=== PATIENT | female | born 1945 | race Caucasian/White ===

== ENCOUNTER 2024-11-25 12:00 | Inpatient (IN) | payer MEDICARE, SELFPAY ==
[2024-11-24 22:08] VITALS: BP 204/103
[2024-11-24 22:15] LABS: Glucose - Point of Care 129 mg/dl (70-99)
[2024-11-24 22:26] VITALS: BP 196/95
--- NOTE | 2024-11-24 22:28 | ED.CVA ---
History of Present Illness
General
Chief Complaint: CVA/TIA Symptoms
Source: patient and family
Time Seen by Provider: 11/24/24 22:15
Onset of Stroke Symptoms
Onset of symptoms known: Yes
Date of onset of symptoms: 11/24/24
Time of onset of symptoms: 21:00
History of Present Illness
History of Present Illness:
79-year-old female presents to the emergency room complaining of of dizziness, vomiting slurred speech. Symptoms seem to begin about an hour or so prior to arrival. Patient denies any headache. Patient has had episodes of vertigo in the past but
has not had slurred speech previously. Today's episode is similar to previous except for the slurred speech. Patient was apprehensive to get up from the wheelchair to move around at home because of the vertigo. She feels off balance when she
stands.
Past History
Past History
ED Past Medical History: CAD, DE and Psychiatric (Anxiety, Depression)
ED Past Surgical History: Cardiac (Stents) and Orthopedic (Spinal surgery)
Social History
Tobacco: Non-smoker
Alcohol: Occasional
Personal:
Living: alone
Phy Exam
Physical Exam
Physical Exam:
General: Awake, Alert, Oriented X3. No acute distress.
Vitals: unremarkable
Head: Atraumatic
Eyes: Pupils equal, EOMI
Throat: Airway intact, no exudates
Neck: Trachea midline
Lungs: Clear and equal b/l
Heart: Regular rate, no murmurs
Abd: Soft, Nontender, No pulsatile mass
Neuro: Cranial nerves intact, muscle strength equal bilaterally, cerebellar exam normal
Skin: Warm, dry, no rash
Extremities: pulses equal b/l, no edema
Scores
NIH Stroke Score
Level of Consciousness: 0 - Alert
LOC Questions: 0-Answers both correctly
LOC Commands: 0-Performs both correctly
Best Horizontal Gaze: 0-Normal
Visual Raymundo: 0=Normal, no visual loss
Facial Palsy: 0=Normal, symmetrical
Motor - Right Arm: 0=No drift 10 seconds
Motor - Left Arm: 0=No drift 10 seconds
Motor - Right Le-No drift 5 seconds
Motor - Left Le-No drift 5 seconds
Limb Ataxia: 0-Absent
Sensation: 0-Normal
Best Language: 0-No aphasia
Dysarthria: 1-Mild slurring
Extinction and Inattention: 0-No abnormality
NIH Total Score:: 1
Course
Orders/Labs/Results
Orders:
Orders
11/24/24 22:19
Electrocardiogram (*1) Urgent
Reason for Study: Other
Other Reason for Exam: Possible Stroke
CT HEAD STROKE ALERT W/o Cont Urgent
Comment:
Reason For Exam: CVA/TIA sx
Bedside Glucose- Treatment ONCE
Cardiac Monitoring- Treatment ONCE
IV Insert/Care/Rem.- Treatment PRN
Urinalysis Reflex To Culture Urgent
Date Specimen was Collected: 11/24/24
Time Specimen was Collected: 22:20
Vital Signs As Directed
Frequency: Other
Weight As Directed
Frequency: Once
Comment: ZERO STRETCHER SCALE FOR ACCURATE WEIGHT
O2 Therapy [RESP] Urgent
Titrate/Wean O2 to maintain O2 sat greater than (%): 93
Special Instructions: MAINTAIN CONTINUOUS O2 SATS > OR = 93%
11/24/24 22:20
EKG- Treatment ONCE
11/24/24 22:23
Basic Metabolic Panel Urgent
Complete Blood Count/With Diff Urgent
PTT Urgent
Prothrombin Time Urgent
Troponin I Urgent
11/24/24 22:26
CT HEAD/NECK ANG STROKE ALERT Urgent
Comment:
Reason For Exam: dizziness, slurred speech
11/24/24 22:50
Ondansetron Injectable [Zofran] 4 mg IV NOW STA
11/24/24 23:10
Meclizine [Antivert] 25 mg PO NOW STA
11/24/24 23:11
Aspirin Chewable [Low Strength Aspirin] 324 mg PO NOW STA
Clopidogrel Bisulfate [Plavix] 75 mg PO NOW STA
11/25/24 00:32
Ondansetron Injectable [Zofran] 4 mg .ROUTE .STK-MED ONE
11/25/24 00:33
Ondansetron Injectable [Zofran] 4 mg IV NOW STA
11/25/24 00:37
Urine Microscopic Reflex Cult Urgent
11/25/24 01:08
Potassium Urgent
11/25/24 01:26
Admit/Transfer Patient As Directed
Co-Sign Provider:
Level of Care: Observation services
Assign to:: Telemetry
Physician / Group: Kulwinder
Diagnosis: Vertigo, CVA / TIA
Reason for Telemetry: CVA/TIA
Date to Stop Telemetry: 11/28/24
Time to Stop Telemetry: 11:00
PRN Pain Medication Management As Directed
May give lesser potent ordered pain med per pt: Yes
preference::
Protocol:: Medication orders for pain may be administered in a
manner that supports deferring to patient preference
when the pt is:
- Requesting an ordered lesser potent pain medication.
Least to most potent pain medications are defined
as: acetaminophen < NSAID < tramadol < opioids
(morphine, oxycodone, hydromorphone).
- Requesting a lesser dose of the same medication IF
ORDERED.
- Requesting a less intrusive route of administration
if both routes are prescribed by the provider (PO <
IV).
11/25/24 01:27
Code Status As Directed
Resuscitation Status: Full Code
11/25/24 02:03
Acetaminophen [Tylenol] 650 mg PO Q4HPRN PRN
Meclizine [Antivert] 12.5 mg PO Q8HPRN PRN
11/25/24 02:03
Glycohemoglobin (HgbA1c) Routine
TSH Reflex To Free T4 Routine
Activity As Directed
Activity Level: Ambulate
With Assistance
EKG with chest pain [ECG as needed] As Directed
ECG as needed for:: Chest Pain
I/O [Intake/ Output] As Directed
Frequency: Per unit guidelines
Neurological Checks As Directed
Frequency: q4h
Orthostatic Vital Signs As Directed
Orthostatic VS Frequency: BID
Pneumatic Compression Sleeves As Directed
Type: Knee high
Vital Signs As Directed
Frequency: Per unit guidelines
Oxygen Therapy [O2 Therapy] [RESP] Routine
Titrate/Wean O2 to maintain O2 sat greater than (%): 94
Ot Eval And Treat Routine
PT Consult [Pt Eval And Treat] Routine
Activity Level: Ambulate
With Assistance
Speech Therapy Eval & Treat Routine
DX Deep Vein Thrombosis Video Routine
11/25/24 06:00
EKG [Electrocardiogram (*1)] IN AM
Reason for Study: Chest Pain
Regular
Basic Metabolic Panel IN AM
Cardiovascular Evaluation IN AM
Complete Blood Count/No Diff IN AM
MR Brain Without Contrast IN AM
Comment:
Reason For Exam: CVA / TIA
Recent pill cam endoscopy?: No
11/25/24 08:00
Aspirin Chewable [Low Strength Aspirin] 81 mg PO DAILY
Clopidogrel Bisulfate [Plavix] 75 mg PO DAILY
11/28/24 11:00
DC Protocol for Telemetry ONCE
Abnormal Lab Results
11/24/24 11/24/24 11/24/24
22:13 22:23 22:53
Absolute Monos (auto) 0.7 H 10^3/uL
(0.1-0.6)
Chloride 111 H mmol/L
(98-107)
BUN 22 H mg/dl
(7-17)
Glucose 136 H mg/dl
(70-99)
Urine Ketones
Urine Albumin (Reflex)
POC Glucose 129 H mg/dl 130 H mg/dl
(70-99) (70-99)
11/25/24
00:37
Absolute Monos (auto)
Chloride
BUN
Glucose
Urine Ketones 1+ A
(Negative)
Urine Albumin (Reflex) 1+ A
(Neg - Trace)
POC Glucose
11/24/24 22:23
11/25/24 01:08
Vital Signs
Initial and Last Documented VS:
Initial Vital Signs
Temp Pulse Resp BP Pulse Ox
97.5 F 81 18 204/103 96
11/24/24 22:08 11/24/24 22:08 11/24/24 22:08 11/24/24 22:08 11/24/24 22:08
Last Documented Vital Signs
Temp Pulse Resp BP Pulse Ox
97.5 F 71 17 140/54 96
11/24/24 22:08 11/25/24 02:00 11/25/24 02:00 11/25/24 02:00 11/25/24 02:00
MDM/Problems Addressed
Differential Diagnosis Includes:
Intracranial bleed, central vertigo from CVA, peripheral vertigo
MDM/Problems Addressed:
Patient presents with vertigo, nausea and. No focal weakness. No slurred speech. Patient has had a couple episodes of vertigo in the past. Hints exam performed and see no nystagmus whatsoever. I do not appreciate any vertical skew. Head
impulse test shows no saccada. Overall only one of the 3 portions of the exam is suggestive of a central event. Discussed patient's presentation with [place] stroke fellow, Dr. Schmitt. Given the patient has no focal deficits other than perhaps
slurred speech and the fact the patient able to ambulate with minimal assistance she does not believe the risks of TNK outweigh the potential benefit. However we will administer aspirin and Plavix. Will hospitalize for MRI and further neurologic
evaluation.
*Pulse Oximetry
SaO2: 96
Oxygen Mode of Delivery: Room air
Patient hypoxic: no
*Critical Care Note
Total Time (30-74mins, 75-104mins- exclusive of procedures): 44 min
comment:
Critical care statement: A total of 44 minutes of critical care time was provided for this patient. This includes management of unstable vital signs, evaluation of the patient at bedside, reviewing the patient's pertinent medical records, discussion
with consultants, review of old EKGs and review of pertinent medical records. This time with separate from time utilized to perform the aforementioned documented procedures
Patient Management
Social determinants of health affecting care: Strong social support
ED Attending Note
-
Portions of this chart may have been created with voice recognition software.� Occasional wrong word or��sound alike� substitutions may have occurred due to the inherent limitations of voice recognition software.
Discharge Plan
Departure
Patient Disposition: Admit
Date of Disposition: 11/25/24
Time of Disposition: 00:39
Presentation/result/management discussed w/ accepting MD/DO: Hospitalist
Patient with high blood pressure during this ER visit?: Yes
Condition: Good
Discharge Problem:
Vertigo, Slurred speech
Interventions
Interventions:
*Risk Screen - Suicide Last Done: 11/24/24 22:14
*General Assessment Last Done: 11/24/24 22:14
*Neglect/Abuse Screening Last Done: 11/24/24 22:14
*ED COVID-19 Vaccine History Last Done: 11/24/24 22:14
ED- Pulmonary Assessment Last Done: 11/24/24 23:39
ED- Neurological Assessment Last Done: 11/24/24 23:39
ED- Cardiac Assessment Last Done: 11/24/24 23:39
ED Swallowing Screen Last Done: 11/24/24 23:20
[2024-11-24 22:36] LABS: Hematocrit 41.1 % (37.0-47.0); Hemoglobin 14.3 g/dL (12.0-16.0); Mean Corp Hgb Conc. 34.8 g/dL (33.0-37.0); Mean Corpuscular Volume 88.2 fL (81.0-99.0); Nucleated Red Blood Cells % 0 %; Platelet Count 164 10^3/uL (130-400); Red Cell Dist. Width 12.1 % (11.5-14.5)
[2024-11-24 22:45] LABS: INR 0.91; PT 12.5 Sec (11.4-14.6)
[2024-11-24 22:46] LABS: APTT 23.6 Sec (23.4-35.0)
[2024-11-24 22:49] VITALS: BMI 32.3
[2024-11-24 22:56] LABS: Glucose - Point of Care 130 mg/dl (70-99)
[2024-11-24 23:00] VITALS: BP 185/90
[2024-11-24 23:01] LABS: Blood Urea Nitrogen 22 mg/dl (7-17); Calcium 9.8 mg/dl (8.4-10.2); Carbon Dioxide 23 mmol/L (22-30); Chloride 111 mmol/L (98-107); Estimated Creatinine Clearance 59 ml/min; Glucose 136 mg/dl (70-99); Sodium 141 mmol/L (135-145); eGFR > 60.00
[2024-11-24] MEDS: ZOFRAN 4 MG IV (23:06)
[2024-11-24 23:10] LABS: Troponin I < 0.012 ng/ml
[2024-11-24 23:11] VITALS: BP 180/158
[2024-11-24] MEDS: ANTIVERT 25 MG PO (23:26)
[2024-11-24] MEDS: LOW STRENGTH ASPIRIN 324 MG PO (23:26)
[2024-11-24] MEDS: PLAVIX 75 MG PO (23:26)
[2024-11-25] VITALS (17 sets, daily range): BP systolic 118–181; BP diastolic 50–125; PULSE 72–88; O2SAT 98
[2024-11-25] MEDS: ZOFRAN 4 MG IV (00:33)
[2024-11-25 01:11] LABS: Urine Character Clear (Clear)
--- NOTE | 2024-11-25 01:33 | HPS.HSE ---
Family Physician
-
Family Physician: NO INTERVIEW UNKNOWN
Chief Complaint
-
Dizziness
History of Present Illness
Patient is a 79y F with PMH significant for ASCVD who presents to ED complaining of dizziness. Patient states that she developed dizziness early this AM sometime after waking. She describes feeling unsteady on her feet and feeling as if she was
spinning in circles. No vision changes and did not feel as if room was spinning around her. Patient denies any fall or LOC. She states that family had to assist her with walking so she would not fall. No prior h/o similar symptoms. No recent
fever, sore throat, cough, etc. Patient denies any associated headache, numbness / tingling, etc.
Family reported some slurred speech as well - though patient states she did not appreciate this herself.
No prior h/o CVA. Patient had prior CA. She denies any stents - though prior records clearly state she had ESTEFANY to the RCA in 2011. She does not take ASA or any other CV medications.
At the time of my examination, patient states that her symptoms are significantly improved. She was able to ambulate to the bathroom in the ED without dizziness / ataxia.
Medical History
Past Medical History
Past Medical History: Reports Other
Additional Past Medical History:
ASCVD
GERD
Anxiety / Depression
OAB
Past Surgical History: Reports Other
Additional Past Surgical History:
PTCA with ESTEFANY to RCA (2011)
Right TKA
Social History
Tobacco: Non-smoker
Alcohol: Occasional
Drug: None
Family History
Family History: Not pertinent
Allergies / Home Medications
Allergies reflects when Allergies were last updated in [facility].
Home Medications with original date entered in [facility]
Allergy/Medication List:
Allergies
Allergy/AdvReac Type Severity Reaction Status Date / Time
levofloxacin (From Levaquin) Allergy Anaphylaxis Verified 11/24/24 22:15
morphine Allergy Vomiting Verified 11/24/24 22:15
Home Medications
tolterodine 4 mg capsule,extended release 24 hr 4 mg PO DAILY Urinary issue 04/06/22
Review of Systems
-
History Source: Patient
A 12 point ROS was completed and negative except as noted: Yes
Constitutional: Reports Fatigue; Denies Fever or Chills
Respiratory: Denies Cough or Trouble Breathing
Cardiac: Denies Chest Pain or Palpitations
Abdomen/GI: Denies Abdominal Pain, Nausea, Vomiting or Diarrhea
: Denies Dysuria, Frequency or Flank Pain
Musculoskeletal: Denies Joint Pain or Edema
Neurological: Reports Dizzy; Denies Headache, Weakness or Numbness
Physical Exam
Vital Signs
Vital Signs
Temp Pulse Resp BP Pulse Ox
97.5 F 82 15 180/158 94
11/24/24 22:08 11/24/24 23:30 11/24/24 23:30 11/24/24 23:11 11/24/24 23:39
Physical Exam
General: Other (79y F in no acute distress.)
HEENT: Moist mucous membranes, PERRLA and Other (Mild dysconjugate gaze. No nystagmus noted.)
Respiratory: Clear; No Wheezes, Rales or Rhonchi
Cardiac: S1/S2 and Regular Rhythm; No Murmur
GI: Soft, Non Tender, Non Distended and Normal Bowel Sounds
Musculoskeletal: No Clubbing, No Cyanosis and No Edema
Neuro: AO x 3 and Nonfocal/grossly intact
Laboratory Results
-
11/24/24 22:23
Laboratory Results
PT 12.5 Sec (11.4-14.6) 11/24/24 22:23
INR 0.91 11/24/24 22:23
APTT 23.6 Sec (23.4-35.0) 11/24/24 22:23
Total Bilirubin Cancelled 11/24/24 22:23
AST Cancelled 11/24/24 22:23
ALT Cancelled 11/24/24 22:23
Alkaline Phosphatase Cancelled 11/24/24 22:23
Troponin I < 0.012 ng/ml 11/24/24 22:23
Impression/Plan
-
A/P: Patient is a 79y F with PMH significant for ASCVD who presents to ED complaining of dizziness.
Dizziness
Dysarthria
- Observe overnight for further evaluation and treatment.
- Suspect BPPV / peripheral vertigo - but rule out central etiology / stroke given slurred speech appreciated by family.
- CT / CTA in the ED were unremarkable.
- DAPT for now.
- MRI in AM.
- Neuro eval if any significant abnormality.
- PT / Vestibular evaluation.
- Monitor for any new / worsening / recurrent symptoms.
ASCVD
- Patient with records clearly indicating prior RCA ESTEFANY.
- She does not take ASA daily despite prior recommendations.
- ASA + Plavix for now.
- Should take ASA daily indefinitely.
- Check lipid panel, A1C, etc.
Elevated BP
- BP initially elevated in the ED - gradually improving without intervention.
- Hydralazine for very high BP.
- Monitor for changes - may benefit from initiation of antihypertensive medication prior to discharge.
OAB
- Hold Detrol acutely.
DVT Prophylaxis: SCDs
Code Status: Full
[2024-11-25 01:40] LABS: Potassium 3.5 mmol/L (3.5-5.1)
[2024-11-25 03:08] LABS: Urine Red Blood Cell None Seen /HPF (0-2)
[2024-11-25 05:56] LABS: Blood Urea Nitrogen 17 mg/dl (7-17); Calcium 9.3 mg/dl (8.4-10.2); Carbon Dioxide 28 mmol/L (22-30); Chloride 109 mmol/L (98-107); Estimated Creatinine Clearance 59 ml/min; Glucose 118 mg/dl (70-99); HDL Cholesterol 58 mg/dl; LDL Cholesterol, Calculated 193 mg/dl; Potassium 3.9 mmol/L (3.5-5.1); Sodium 141 mmol/L (135-145); Very Low Density Lipoprotein 42 mg/dl (0-30); eGFR > 60.00
--- NOTE | 2024-11-25 08:05 | W.PN.HOSP.TC ---
Addendum entered and electronically signed by Mer Good MD 11/25/24 12:15:
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
Informed daughter on the phone
[place] Neuro Dr Joseph
Cont DAPT ASA/plavix
PT recc JOSEPH Ty informed for Ty dispo
Also incidental finding of Moderate spinal cord compression and central canal stenosis at C5/C6 from MRI. Pt did not complain of neck pain.
Finding discussed with daughter Josie. Recc outpt neurosurgery eval
total time spent 51 min
Original Note:
Today's Communication/Plan
-
see A/P
Assessment / Plan
Assessment / Plan
HPI: 79y F with PMH significant for ASCVD who presented to ED complaining of dizziness and unsteady on her feet. Patient denies any fall or LOC. She states that family had to assist her with walking so she would not fall. No prior h/o similar
symptoms. Family reported some slurred speech as well - though patient states she did not appreciate this herself.
No prior h/o CVA. Patient had prior AK. She denies any stents - though prior records clearly state she had ESTEFANY to the RCA in 2011. She does not take ASA or any other CV medications.
In the ED, patient states that her symptoms are significantly improved. She was able to ambulate to the bathroom in the ED without dizziness / ataxia.
A/P:
# Dizziness
# resolved dysarthria
Possible BPPV / peripheral vertigo - but rule out central etiology / stroke given slurred speech appreciated by family.
CT / CTA in the ED were unremarkable.
Check MRI
DAPT for now.
LDL 193, pt states that she did not tolerate statin before, start Zetia 10 mg
Follow A1C
Neuro CS
PT / Vestibular evaluation.
Monitor for any new / worsening / recurrent symptoms.
Noted UA is largely unrevealing
Clears for now until nausea resolved
# ASCVD
Patient with records clearly indicating prior RCA ESTEFANY.
She does not take ASA daily despite prior recommendations.
ASA + Plavix for now.
Should take ASA daily indefinitely.
# Essential HTN
Allow permissive HTN for now
consider adding standing BP med after window for stroke
IV Hydralazine for very high BP.
# OAB
Hold Detrol acutely.
DVT Prophylaxis: SCDs
Code Status: Full
Anticipated Discharge: 24 - 48 hours
Subjective/Interval History
-
Date of Service: November 25, 2024
Objective Data
-
Labs:
Laboratory Results
11/24/24 11/25/24 11/25/24
22:23 01:08 05:23
WBC 10.2 Cancelled
Hgb 14.3 Cancelled
Hct 41.1 Cancelled
Plt Count 164 Cancelled
PT 12.5
INR 0.91
APTT 23.6
Sodium 141 141
Potassium 3.5 3.9
Chloride 111 H 109 H
Carbon Dioxide 23 28
BUN 22 H 17
Creatinine 0.7 0.7
Glucose 136 H 118 H
Calcium 9.8 9.3
Total Bilirubin Cancelled
AST Cancelled
ALT Cancelled
Alkaline Phosphatase Cancelled
Vital Signs:
Vital Signs
Temp Pulse Resp BP Pulse Ox
36.4 C 69 24 174/78 98
11/24/24 22:08 11/25/24 06:30 11/25/24 06:30 11/25/24 06:00 11/25/24 06:30
Review of Systems
-
History Source: Patient
Abdomen/GI: Reports Nausea
Neuro: Reports Dizzy
Physical Exam
-
General: Well Developed, Well Nourished, No Apparent Distress, Comfortable and Conversant; Negative Respiratory Distress
HEENT: Normocephalic, Atraumatic, Nose Appears Normal and Ears Appear Normal; Negative Oxygen
Respiratory: Clear to Auscultation and Non Labored Respirations; Negative Accessory Resp Muscle Use
Cardiac: Regular Rhythm and S1/S2
GI: Soft, Nontender, Nondistended and Normal Bowel Sounds
Skin: Warm and Dry
Neuro: Awake, Alert, Oriented and AO x 3
Psych: Calm and Intact Judgement/Insight
Data Reviewed
-
CT Scan: Report Reviewed by me
Labs: Labs Reviewed by me
--- NOTE | 2024-11-25 09:59 | CON.NEURO ---
Addendum entered and electronically signed by Mario Joseph MD 11/25/24 16:33:
Studies reviewed.
I have personally examined the patient. I reviewed and agree with the MAINTENANCE AND ENGINEERING MANAGER's Note.
My addenda:
Awake, alert, interactive. No acute distress.
Speech intact.
Follows 2-step requests w/o difficulty. No tremor.
Extra-ocular movements grossly intact.
Facial movements full and symmetric. Hearing intact to normal conversational volume.
Normal UE movements bilaterally.
Neck: full ROM.
Chest: no dyspnea
Heart: no JVD
Ext: (-) Clubbing, (-) Cyanosis, (-) Edema
IMPRESSIONS/RECOMMENDATIONS:
Abrupt onset of dizziness and suggestion of slurred speech
MRI of brain suggestive of large midline and left cerebellar acute ischemic stroke
start ASA and Clopidogrel for 21 days then aspirin alone
provide Atorvastatin 80 mg daily due to LDL > 70
Unclear if patient likely to have worsening in next 24 hours due to possible edema
rehab evaluations
eventual re-imaging of spinal cord due to moderate spinal cord narrowing
D/W patient
All questions answered.
Will continue to follow as needed. Patient should follow with usual outpatient neurologist.
Original Note:
Documented by User: Debi Maldonado NP 11/25/24 13:31
Neuro Assessment/Plan
Assessment
Patient is a 79 year old right-handed female with PMH significant for CAD, [place] who presented to [facility] on 11/25/2024 for evaluation of dizziness.
Head CT: No acute intracranial abnormality. ASPECT score: 10
CTA head/neck: No findings to suggest hemodynamically significant stenosis of the carotid arterial system bilaterally or internal carotid artery dissection bilaterally. Dominant left vertebral artery. No findings to suggest proximal intracranial
arterial stenosis bilaterally.
Brain MRI:
1. ACUTE ISCHEMIC INFARCTS in the CEREBELLAR VERMIS and LEFT CEREBELLAR HEMISPHERE.
2. Moderate white matter leukoaraiosis in the frontal and parietal lobes.
3. Mild diffuse cerebral and cerebellar volume loss.
4. Large amount of fluid in the right mastoid air cells.
5. Severe multilevel cervical discogenic degenerative disease.
6. Moderate spinal cord compression and central canal stenosis at C5/C6.
7. Mild spinal cord compression and central canal stenosis at C3/C4 and C4/C5.
Labs: Cholesterol 293, LDL 193, Hgb A1C 5.3
Plan
Impression: abrupt onset of dizziness due to acute ischemic cerebellar stroke as evidence by brain MRI
-BP goal is normotension.
-continue aspirin 81 mg and clopidogrel 75 mg daily for 21 days followed by monotherapy with aspirin
-goal LDL <70, current LDL 193, add atorvastatin 80 mg nightly.
-PT/OT/ST evaluations
-continue neurochecks and NIHSS per unit guidelines
-stroke education material to be provided
-follow up with usual outpatient neurologist Dr. Liliana Ram at [facility]
All questions encouraged and answered, plan of care discussed with Dr. Joseph, nurse and patient
Consultation
Order
Date of Consultation: 11/25/24
Requesting Provider: hospitalist
Reason for Consult: dizziness
Subjective/Objective
Subjective Data
Date of Service: November 25, 2024
Patient is vague and not a great historian. Most information taken from staff and chart. Patient is a 79 year old right-handed female with PMH significant for CAD, [place] who presented to [facility] on 11/25/2024 for evaluation of dizziness. Patient states
that she developed dizziness and blurry vision a few days ago. She states her head 'feels funny.' Patient denies any fall or LOC. She states that family had to assist her with walking so she would not fall. Denies recent fever, SOB, chest pain or
illness. Patient denies any associated headache, numbness or tingling. Denies chewing or swallowing issues. Denies issues with bowel/bladder. No prior h/o CVA. Patient had prior [place]. She denies any stents - though prior records clearly state she
had ESTEFANY to the RCA in 2011. She is not on any antiplatelet mediations or anticoagulation. In the ED she was hypertensive with initial BP 204/103. Initial head CT and CTA head and neck unremarkable. Brain MRI showed acute ischemic infarcts in the
cerebellar vermis and left cerebellar hemisphere. Current NIHSS 0, patient not a TNK candidate due to low NIH and out of window.
Objective Data
Vital Signs
Temp Pulse Resp BP Pulse Ox
97.8 F 69 24 174/78 98
11/25/24 08:27 11/25/24 06:30 11/25/24 06:30 11/25/24 06:00 11/25/24 06:30
Lab Results
11/25/24 05:23
11/25/24 05:23
PT 12.5 Sec (11.4-14.6) 11/24/24 22:23
INR 0.91 11/24/24 22:23
APTT 23.6 Sec (23.4-35.0) 11/24/24 22:23
Sodium 141 mmol/L (135-145) 11/25/24 05:23
Potassium 3.9 mmol/L (3.5-5.1) 11/25/24 05:23
BUN 17 mg/dl (7-17) 11/25/24 05:23
Glucose 118 mg/dl (70-99) H 11/25/24 05:23
Calcium 9.3 mg/dl (8.4-10.2) 11/25/24 05:23
LDL Cholesterol, Calc 193 mg/dl 11/25/24 05:23
Patient Allergies
levofloxacin (From Levaquin) Allergy (Verified 11/24/24 22:15)
Anaphylaxis
morphine Allergy (Verified 11/24/24 22:15)
Vomiting
CVA Assessment
Onset of Stroke Symptoms
Onset of symptoms known: No
Time pt last seen normal is known: No
NIH Stroke Score
Level of Consciousness: 0 - Alert
LOC Questions: 0-Answers both correctly
LOC Commands: 0-Performs both correctly
Best Horizontal Gaze: 0-Normal
Visual Raymundo: 0=Normal, no visual loss
Facial Palsy: 0=Normal, symmetrical
Motor - Right Arm: 0=No drift 10 seconds
Motor - Left Arm: 0=No drift 10 seconds
Motor - Right Le-No drift 5 seconds
Motor - Left Le-No drift 5 seconds
Limb Ataxia: 0-Absent
Sensation: 0-Normal
Best Language: 0-No aphasia
Dysarthria: 0-Normal
Extinction and Inattention: 0-No abnormality
NIH Total Score:: 0
Tenecteplase Contraindications
Inclusion and Exclusion criteria reviewed: Yes
Reasons for NON-Tx with Thrombolytics ABSOLUTE Exclusions: Time-out of window
IAT Contraindications: >6 hrs from onset/last seen normal and NIHSS < 6
Medications
-
Active Medications
Generic Name Dose Route Start Last Admin
Trade Name Freq PRN Reason Stop Dose Admin
Acetaminophen 650 mg 11/25/24 02:03
Acetaminophen 325 Mg Tablet PO 12/23/24 02:02
Q4HPRN PRN
Mild Pain / Temp > 101
Aspirin 81 mg 11/25/24 08:00
Aspirin 81 Mg Chewable Tablet PO 12/23/24 07:59
DAILY ANJELICA
Clopidogrel Bisulfate 75 mg 11/25/24 08:00
Clopidogrel 75 Mg Tablet PO 12/23/24 07:59
DAILY ANJELICA
Ezetimibe 10 mg 11/25/24 09:00
Ezetimibe (Zetia) 10 Mg Tablet PO 12/23/24 08:59
DAILY ANJELICA
Hydralazine HCl 5 mg 11/25/24 02:03
Hydralazine 20 Mg/Ml Vial IV 12/23/24 02:02
Q6HPRN PRN
SBP > 180
Meclizine HCl 12.5 mg 11/25/24 02:03
Meclizine 12.5 Mg Tablet PO 12/23/24 02:02
Q8HPRN PRN
Dizziness
Home Medications
�Medication �Instructions �Recorded
tolterodine 4 mg capsule,extended 4 mg PO DAILY Urinary issue 04/06/22
release 24 hr

Documented by User: Mairo Joseph MD 11/25/24 16:30
CVA Assessment
NIH Stroke Score
NIH Total Score:: 0
[2024-11-25] MEDS: LOW STRENGTH ASPIRIN 81 MG PO (10:24)
[2024-11-25] MEDS: PLAVIX 75 MG PO (10:24)
[2024-11-25] MEDS: ZETIA 10 MG PO (10:24)
[2024-11-25 10:37] LABS: Glycohemoglobin (HgbA1c) 5.3 % (4.0-5.6)
--- NOTE | 2024-11-25 13:00 | CM ---
CM reviewed chart and met with pt in ED. Pt lives with her daughter Josie in 2 story home, [address]. has first floor half BA, full flight to second floor BR/full BA.
Pt is independent in ADLs, personal care and ambulation, uses rolling walker when outside the home.
Pt believes she does not have prescription coverage.
SCHILLING reviewed and signed. Copy left with pt.
PCP: Kristopher Guzmán
Pharmacy: [facility]
Anticipate return home, watch for needs.
--- NOTE | 2024-11-25 13:20 | PTOTSP ---
Speech Language Pathology
Pt seen for speech/language evaluations. No dysarthria/dysphonia with adequate diadochokinetic (DDK) rates. Pt/family reported speech at baseline. Language evaluated via the Quick Aphasia Battery (QAB), form 1. Pt with an overall score of 9.29,
indicative of overall skills WNL. Scored WNL on all subtests except 'word comprehension.' Scored 8.75, indicative of mild deficits; however, suspect related to TANACROSS status.
TILE FITTER to follow for therapeutic reassessment of cognitive abilities.
[2024-11-26] VITALS (8 sets, daily range): BP systolic 110–152; BP diastolic 56–75; PULSE 72–89; O2SAT 93
[2024-11-26 08:19] LABS: Hematocrit 37.9 % (37.0-47.0); Hemoglobin 13.0 g/dL (12.0-16.0); Mean Corp Hgb Conc. 34.3 g/dL (33.0-37.0); Mean Corpuscular Volume 87.7 fL (81.0-99.0); Platelet Count 167 10^3/uL (130-400); Red Cell Dist. Width 12.4 % (11.5-14.5)
--- NOTE | 2024-11-26 08:48 | W.PN.NEURO.1 ---
Today's Communication / Plan
-
goal LDL <70, current LDL 193, patient refusing atorvastatin
Neuro Assessment/Plan
Assessment
Patient is a 79 year old right-handed female with PMH significant for CAD, [place] who presented to [facility] on 11/25/2024 for evaluation of dizziness.
Head CT: No acute intracranial abnormality. ASPECT score: 10
CTA head/neck: No findings to suggest hemodynamically significant stenosis of the carotid arterial system bilaterally or internal carotid artery dissection bilaterally. Dominant left vertebral artery. No findings to suggest proximal intracranial
arterial stenosis bilaterally.
Brain MRI:
1. ACUTE ISCHEMIC INFARCTS in the CEREBELLAR VERMIS and LEFT CEREBELLAR HEMISPHERE.
2. Moderate white matter leukoaraiosis in the frontal and parietal lobes.
3. Mild diffuse cerebral and cerebellar volume loss.
4. Large amount of fluid in the right mastoid air cells.
5. Severe multilevel cervical discogenic degenerative disease.
6. Moderate spinal cord compression and central canal stenosis at C5/C6.
7. Mild spinal cord compression and central canal stenosis at C3/C4 and C4/C5.
Labs: Cholesterol 293, LDL 193, Hgb A1C 5.3
Impression: abrupt onset of dizziness due to acute ischemic cerebellar stroke as evidence by brain MRI
Plan
continue aspirin 81 mg and clopidogrel 75 mg daily for 21 days followed by monotherapy with aspirin
goal LDL <70, current LDL 193, patient refusing atorvastatin
follow up with usual outpatient neurologist Dr. iLliana Ram at [facility]
Subjective/Objective
Subjective Data
Date of Service: November 26, 2024
Objective Data
Vital Signs
Temp Pulse Resp BP Pulse Ox
36.3 C 62 16 130/62 95
11/26/24 03:36 11/26/24 03:36 11/26/24 03:36 11/26/24 03:36 11/26/24 03:36
Lab Results
11/26/24 07:23
PT 12.5 Sec (11.4-14.6) 11/24/24 22:23
INR 0.91 11/24/24 22:23
APTT 23.6 Sec (23.4-35.0) 11/24/24 22:23
Sodium 141 mmol/L (135-145) 11/25/24 05:23
Potassium 3.9 mmol/L (3.5-5.1) 11/25/24 05:23
BUN 17 mg/dl (7-17) 11/25/24 05:23
Glucose 118 mg/dl (70-99) H 11/25/24 05:23
Calcium 9.3 mg/dl (8.4-10.2) 11/25/24 05:23
LDL Cholesterol, Calc 193 mg/dl 11/25/24 05:23
Patient Allergies
levofloxacin (From Levaquin) Allergy (Verified 11/24/24 22:15)
Anaphylaxis
morphine Allergy (Verified 11/24/24 22:15)
Vomiting
Data Reviewed
-
Labs: Report Reviewed
Lipid Profile: Report Reviewed
Reviewed with: Nurse Practioner
Old Records: Summarized
Past History
Past History
ED Past Medical History: CAD, [place] and Psychiatric (Anxiety, Depression)
ED Past Surgical History: Cardiac (Stents) and Orthopedic (Spinal surgery)
Social History
Tobacco: Non-smoker
Alcohol: Occasional
Personal:
Living: alone
Medications
-
Medications:
Generic Name Dose Route Start Last Admin
Trade Name Freq PRN Reason Stop Dose Admin
Acetaminophen 650 mg 11/25/24 02:03
Acetaminophen 325 Mg Tablet PO 12/23/24 02:02
Q4HPRN PRN
Mild Pain / Temp > 101
Amlodipine Besylate 2.5 mg 11/26/24 08:00 11/26/24 09:23
Amlodipine 2.5 Mg Tablet PO 12/24/24 07:59 2.5 mg
DAILY ANJELICA Administration
Aspirin 81 mg 11/25/24 08:00 11/26/24 09:23
Aspirin 81 Mg Chewable Tablet PO 12/23/24 07:59 81 mg
DAILY ANJELICA Administration
Clopidogrel Bisulfate 75 mg 11/25/24 08:00 11/26/24 09:23
Clopidogrel 75 Mg Tablet PO 12/23/24 07:59 75 mg
DAILY ANJELICA Administration
Ezetimibe 10 mg 11/25/24 09:00 11/26/24 09:23
Ezetimibe (Zetia) 10 Mg Tablet PO 12/23/24 08:59 10 mg
DAILY ANJELICA Administration
Hydralazine HCl 5 mg 11/25/24 02:03
Hydralazine 20 Mg/Ml Vial IV 12/23/24 02:02
Q6HPRN PRN
SBP > 180
Meclizine HCl 12.5 mg 11/25/24 02:03
Meclizine 12.5 Mg Tablet PO 12/23/24 02:02
Q8HPRN PRN
Dizziness
Ondansetron HCl 4 mg 11/25/24 12:08
Ondansetron 4 Mg/2 Ml Vial IV 12/23/24 12:07
Q6HPRN PRN
NAUSEA/VOMITING
Sodium Chloride 0 flush 11/25/24 14:00
Sodium Chloride 0.9% (Flush) Syringe IV 12/23/24 13:59
PER PROTOCOL ANJELICA
[2024-11-26 08:57] LABS: Blood Urea Nitrogen 18 mg/dl (7-17); Calcium 9.1 mg/dl (8.4-10.2); Carbon Dioxide 25 mmol/L (22-30); Chloride 111 mmol/L (98-107); Estimated Creatinine Clearance 59 ml/min; Glucose 90 mg/dl (70-99); Magnesium 2.0 mg/dl (1.6-2.3); Potassium 3.8 mmol/L (3.5-5.1); Sodium 140 mmol/L (135-145); eGFR > 60.00
[2024-11-26] MEDS: NORVASC 2.5 MG PO (09:23)
[2024-11-26] MEDS: ZETIA 10 MG PO (09:23)
[2024-11-26] MEDS: LOW STRENGTH ASPIRIN 81 MG PO (09:23)
[2024-11-26] MEDS: PLAVIX 75 MG PO (09:23)
--- NOTE | 2024-11-26 10:42 | W.PN.HOSP.TC ---
Today's Communication/Plan
-
await PM&R
acute rehab referrals
Assessment / Plan
Assessment / Plan
pt is a 79 year old female
acute cerebellar CVA, presents with Dizziness and resolved dysarthria--asa/plavix x 21 days--LDL elevated, intolerant to statin--zetia started--? candidate for repatha?--apprec neuro--PT/OT--await PM&R--rec KIRBY
ASCVD--Patient with records clearly indicating prior RCA ESTEFANY--She does not take ASA daily despite prior recommendations--ASA + Plavix for now--Should take ASA daily indefinitely
Essential HTN --Allow permissive HTN for now--consider adding standing BP med after window for stroke --IV Hydralazine for very high BP.
overactive bladder--hold detrol acutely
DVT Proph--SCDs
Code Status--Full
Anticipated Discharge: Within 24 hours
Subjective/Interval History
-
Date of Service: November 26, 2024
pt upset because her parents of a stroke
Objective Data
-
Labs:
Laboratory Results
11/26/24
07:23
WBC 7.3
Hgb 13.0
Hct 37.9
Plt Count 167
Sodium 140
Potassium 3.8
Chloride 111 H
Carbon Dioxide 25
BUN 18 H
Creatinine 0.7
Glucose 90
Calcium 9.1
Vital Signs:
max temp for 24 hours
11/25/24
23:43
Temp 98.4 F
Vital Signs
Temp Pulse Resp BP Pulse Ox
98.0 F 62 16 152/72 98
11/26/24 07:45 11/26/24 09:23 11/26/24 07:45 11/26/24 09:11/26/24 07:45
Review of Systems
-
All other systems: Reviewed and negative
Physical Exam
-
General: Well Developed, Well Nourished and No Apparent Distress
HEENT: Normocephalic and Atraumatic
Respiratory: Clear to Auscultation; Negative Wheezes or Rhonchi
Cardiac: Regular Rhythm and S1/S2; Negative Murmur
GI: Soft, Nontender, Nondistended and Normal Bowel Sounds
Musculoskeletal: No Clubbing, No Cyanosis and No Edema
Neuro: Awake and Nonfocal/Grossly Intact
Psych: Calm
--- NOTE | 2024-11-26 10:50 | CM ---
Addendum entered by Charis Zarate 11/26/24 15:40:
Patient seen by Dr. Montague, per Doctor. CM awaiting note to fax with auth request. Patient was accepted by both [facility] and [facility]. CM spoke with patient and she requested CM start auth with [facility] and CM called to start auth request with
[facility] reference number [id number] CM will fax clinicals to [phone].
Addendum entered by Charis Zarate 11/26/24 12:23:
referral sent via all [facility] to [facility] and calls placed to [facility] liaison Torie [phone], left requesting call back.
Addendum entered by Charis Zarate 11/26/24 10:52:
Patient now INP.
Original Note:
Patient seen at bedside with physician on [address]. Patient aware of the recommendation for Acute rehab, and would like [facility] or [facility] if possible. Pending PM&R consult. CM tt to liaison at [facility] to determine if beds available, and will send
referrals to both [facility] and [facility]. Patient will need auth. CM will continue to follow for discharge planning needs.
Plan; Acute Rehab
--- NOTE | 2024-11-26 16:53 | CON.MR ---
Addendum entered and electronically signed by Shiv Montague MD 11/26/24 16:53:
.
Original Note:
Documented by User: Zach Mckeon MD, Resident 11/26/24 15:08
Consultation
Consultation Request
Date/Time Consultation Requested: 11/25/2024
Date/Time Consultation Performed: 11/26/2024
Requesting Provider: Mer Rodriguez
Performing Provider: Dr. Montague
Reason for Consultation: CVA
Medical History
-
Chief Complaint: Dizziness, CVA
History of Present Illness:
Ms. Mcwilliams is a 79y F with PMH significant for ASCVD, [place] s/p stent to RCA 2011 not on aspirin, multiple concussions last on 2021, GERD, osteoarthritis, memory issues, insomnia and depression/anxiety who presents to ED complaining of dizziness.
Patient states that she developed dizziness early on the afternoon/evening of 11/25 with no precipitating event. She describes feeling unsteady on her feet and feeling as if she was spinning in circles. No vision changes and did not feel as if room
was spinning around her, patient had nausea vomiting. Patient denies any fall or LOC. She states that family had to assist her with walking so she would not fall. Family reported some slurred speech as well - though patient states she did not
appreciate this herself. In the ED patient states that her symptoms are significantly improved. She was able to ambulate to the bathroom without dizziness / ataxia. CT/CTA in the ED showed no intracranial abnormalities. MRI in the hospital
showed acute infarcts in the cerebellar vermis and left cerebellar hemisphere. Patient was started on aspirin and Plavix. MRI showed moderate spinal cord compression and central canal stenosis at C5-C6, Mild spinal cord compression and central
canal stenosis at C3/C4 and C4/C5 patient without neck pain or upper extremity complaints.
Past Medical History
Past Medical History: CAD, GERD, Hypercholesterolemia, [place] (S/p stent to RCA), Psychiatric (Depression, anxiety) and Other (Osteoarthritis, memory issues)
Past Surgical History: Cardiac (Drug-eluting stent RCA) and Orthopedic (Spinal surgery, TKA right)
Family History
Family History: Reviewed & Not Pertinent
Social History
Functional Level Premorbidity:
Independent for all activities.
SPC for long distances due to TKA
Current Funct Level: Ambulation, Transfer, UE/LE Dressing:
Bed mobility: Min a
Transfer: Min a
Ambulation: 15 feet x 2 min a no assistive devices
ADL status: Grooming min a, toileting min a, upper extremity self-care supervision, lower extremity self-care independent
Tobacco: Non-Smoker
Alcohol: Occasional
Drug: None
Personal:
Living: With Family
Number of Floors: 2
# Steps to Enter: 4
# Steps to Second Floor: 16
Potential First Floor Set Up: No
Driving: No
Employment: Retired
Allergies / Home Medications
Allergy/AdvReac Type Severity Reaction Status Date / Time
levofloxacin (From Levaquin) Allergy Anaphylaxis Verified 11/24/24 22:15
morphine Allergy Vomiting Verified 11/24/24 22:15
�Medication �Instructions �Recorded �Confirmed �Last Taken �Type
tolterodine 4 mg capsule,extended 4 mg PO DAILY Urinary issue 04/06/22 11/25/24 02/17/23 History
release 24 hr
Review Of Systems
-
History Source: Patient and Family
Constitutional: Reports No Symptoms; Denies Fever, Fatigue or Night Sweats
Eye: Reports No Symptoms; Denies Blurry Vision or Visual Field Cut
EENT: Reports No Symptoms; Denies Sore Throat or Runny Nose
Respiratory: Reports No Symptoms; Denies Cough or Trouble Breathing
Cardiac: Reports No Symptoms; Denies Chest Pain or Palpitations
Abdomen/GI: Reports No Symptoms; Denies Abdominal Pain, Nausea, Vomiting, Diarrhea or Constipated
: Reports No Symptoms; Denies Dysuria or Frequency
Musculoskeletal: Reports No Symptoms; Denies Joint Pain
Integumentary: Reports No Symptoms
Neurological: Reports No Symptoms; Denies Dizzy, Headache, Weakness or Numbness
Physical Exam
Active Medications
Generic Name Dose Route Start Last Admin
Trade Name Freq PRN Reason Stop Dose Admin
Acetaminophen 650 mg 11/25/24 02:03
Acetaminophen 325 Mg Tablet PO 12/23/24 02:02
Q4HPRN PRN
Mild Pain / Temp > 101
Amlodipine Besylate 2.5 mg 11/26/24 08:00
Amlodipine 2.5 Mg Tablet PO 12/24/24 07:59
DAILY ANJELICA
Aspirin 81 mg 11/25/24 08:00 11/25/24 10:24
Aspirin 81 Mg Chewable Tablet PO 12/23/24 07:59 81 mg
DAILY ANJELICA Administration
Clopidogrel Bisulfate 75 mg 11/25/24 08:00 11/25/24 10:24
Clopidogrel 75 Mg Tablet PO 12/23/24 07:59 75 mg
DAILY ANJELICA Administration
Ezetimibe 10 mg 11/25/24 09:00 11/25/24 10:24
Ezetimibe (Zetia) 10 Mg Tablet PO 12/23/24 08:59 10 mg
DAILY ANJELICA Administration
Hydralazine HCl 5 mg 11/25/24 02:03
Hydralazine 20 Mg/Ml Vial IV 12/23/24 02:02
Q6HPRN PRN
SBP > 180
Meclizine HCl 12.5 mg 11/25/24 02:03
Meclizine 12.5 Mg Tablet PO 12/23/24 02:02
Q8HPRN PRN
Dizziness
Ondansetron HCl 4 mg 11/25/24 12:08
Ondansetron 4 Mg/2 Ml Vial IV 12/23/24 12:07
Q6HPRN PRN
NAUSEA/VOMITING
Vital Signs
Temp Pulse Resp BP Pulse Ox
97.8 F 69 24 174/78 98
11/25/24 08:27 11/25/24 06:30 11/25/24 06:30 11/25/24 06:00 11/25/24 06:30
Height 5 ft
Actual Weight 75.1 kg
Body Mass Index (BMI) 32.3
Physical Exam
Physical Exam:
General Appearance/Observation: Well-developed, well-nourished individual in no apparent distress.
Pain/Comfort Assessment: Denies
Mood/Affect: Appropriate
Integumentary/Operative Site:
Pressure Ulcer: absent
Other Type of Wound: absent
Eyes: Conjunctiva/Lids: normal Pupils: pupils equal round and reactive to light and Accommodation
Ears/Nose/Throat: oral mucosa moist, throat clear. Lips/Teeth/Gums: normal
Neck: No muscle spasm or tenderness
Cardiovascular: Heart: regular rate, regular rhythm, no murmur
Pulses: dorsalis pedis 2+ bilaterally
Respiratory: Respiratory Effort/Chest Expansion: normal Auscultation: Clear to auscultation bilaterally
Gastrointestinal: abdomen not tender, no distension, normal abdominal bowel sounds
Genitourinary: No Yañez
Rectal Exam: Deferred
Extremities: Edema: None Cyanosis: None Trophic changes: None
Neurology Exam:
Orientation: Alert, Oriented to self, Time, Place, situation
Memory: Intact immediately and at 3 minutes
Higher cortical function
Speech: Intact
Repetition: Intact
Comprehension: Intact
Two step command: Intact
Naming: Intact
Cranial Nerves:
CNII: Pupillary light reflex: Intact Visual Field: Intact
CN III, IV, : Extraocular muscles: Intact
CN V: Facial Sensation at Forehead: Intact , Maxilla: Intact, Mandible: Intact
CN VII: Facial movement: Symmetric
CN VIII: Hearing: Normal
CN IX/X: Speech & swallow: Normal, Position of Uvula: Midline
CN XI: Shoulder shrug: Symmetric
CN XII: Tongue protrusion: Midline
Sensory:
Light touch: Intact in bilateral upper and lower extremities
Pinprick: Intact lower extremities
Proprioception: Intact
Reflexes:
Biceps: 2+ bilaterally
Brachioradialis: 2+ bilaterally
Triceps: 2+ bilaterally
Patellar: 2+ bilaterally
Achilles: 0 bilaterally
Babinski: Downgoing bilaterally
Clonus: None
Donnell: Negative bilaterally
Cerebellar: Dysmetria/Ataxia: None
Musculoskeletal:
Motor: (Manual muscle scale 0-5)
Muscle SA EF WE EE FF FA HF KE DF EHL PF
Right 5 5 5 5 5 5 4 5 5 5 5
Left 5 5 5 5 5 5 4 5 5 5 5
Tone: Normal in all extremities
Range of Motion: Passively within normal limits in all extremities
Lab Results
11/25/24 05:23
11/25/24 05:23
WBC Cancelled 11/25/24 05:23
Hgb Cancelled 11/25/24 05:23
Hct Cancelled 11/25/24 05:23
MCV Cancelled 11/25/24 05:23
Plt Count Cancelled 11/25/24 05:23
PT 12.5 Sec (11.4-14.6) 11/24/24 22:23
INR 0.91 11/24/24 22:23
Sodium 141 mmol/L (135-145) 11/25/24 05:23
Potassium 3.9 mmol/L (3.5-5.1) 11/25/24 05:23
Chloride 109 mmol/L (98-107) H 11/25/24 05:23
Carbon Dioxide 28 mmol/L (22-30) 11/25/24 05:23
BUN 17 mg/dl (7-17) 11/25/24 05:23
Creatinine 0.7 mg/dL (0.6-1.0) 11/25/24 05:23
eGFR > 60.00 11/25/24 05:23
Glucose 118 mg/dl (70-99) H 11/25/24 05:23
Hemoglobin A1c 5.3 % (4.0-5.6) 11/25/24 05:23
Calcium 9.3 mg/dl (8.4-10.2) 11/25/24 05:23
Total Bilirubin Cancelled 11/24/24 22:23
AST Cancelled 11/24/24 22:23
ALT Cancelled 11/24/24 22:23
Alkaline Phosphatase Cancelled 11/24/24 22:23
Total Protein Cancelled 11/24/24 22:23
Albumin Cancelled 11/24/24 22:23
Diagnostic Results
As per HPI.
Comorbidities / Impairment Group
Assessment / Plan
Assessment
Patient is a 79 year old right-handed female with PMH significant for CAD, [place], concussions who presented to [facility] on 11/25/2024 for evaluation of dizziness. Patient was found to have acute ischemic infarct in the cerebellar vermis, left cerebellar
hemisphere. Also incidental finding of cervical canal stenosis.
Plan
PM&R PT/OT to increase independence with ADLs, improve balance, coordination, endurance, strength, mobility, community reintegration, decreased burden of care on others and family education.
CVA: Secondary prophylaxis with aspirin, statin, and blood pressure control (SBP less than 180 and diastolic less than 100 to participate with therapy for ischemic stroke). Continue to monitor neurologic status.
HTN: continue medications, monitor closely
HLD: Zetia, patient unable to tolerate statin
Coronary artery disease : Aspirin, Zetia, beta-alex
Skin: monitor for pressure sores/rashes/lesions.
Pain: acetaminophen or oxycodone as needed.
Bowel: Colace and Senna, PRN bisacodyl.
Bladder: Time void, PVRs, PRN straight cath.
GI Prophylaxis: Pantoprazole
DVT Prophylaxis: SCDs
Safety: Continue to reinforce assistance with all transfers.
Code Status: Full code
Dispo: Acute rehab patient will benefit from PT/OT to increase independence with ADLs, improve balance, coordination, endurance, strength, mobility, community reintegration, decreased burden of care on others and family education.
Functional and Medical Goals: Modified Independent with ADL�s, ambulation, transfers
Summary
-
Things that must be addressed in Hospital prior to discharge:
Patient must be stable on oral pain medications.
Blood pressure must be less than 180 systolic and 100 diastolic for 24 hours before being stable for transfer to SNF/acute rehab.
Please give blood pressure parameters.
Please comment on dvt chemoprophylaxis restrictions.
Discharge Destination: Acute rehab patient will benefit from PT/OT to increase independence with ADLs, improve balance, coordination, endurance, strength, mobility, community reintegration, decreased burden of care on others and family education.
Summary of recommendations:
- Discharge Destination: Acute rehab patient will benefit from PT/OT to increase independence with ADLs, improve balance, coordination, endurance, strength, mobility, community reintegration, decreased burden of care on others and family education.
Will sign off, please re-consult if needed.
Thank you for allowing me to care for your patient. Please contact me with any questions or concerns.
Comments
-
This note was dictated using a voice recognition system. Please excuse any typographical errors from marine engineering consultant. If you believe there are any discrepancies, please notify our office.

Documented by User: Shiv Montague MD 11/26/24 16:43
Medical History
-
History of Present Illness:
Ms. Mcwilliams is a 79y F with PMH significant for ASCVD, [place] s/p stent to RCA 2011 not on aspirin, multiple concussions last on 2021, GERD, osteoarthritis, memory issues, insomnia and depression/anxiety who presents to ED complaining of dizziness.
Patient states that she developed dizziness early on the afternoon/evening of 11/25 with no precipitating event. She describes feeling unsteady on her feet and feeling as if she was spinning in circles. No vision changes and did not feel as if room
was spinning around her, patient had nausea vomiting. Patient denies any fall or LOC. She states that family had to assist her with walking so she would not fall. Family reported some slurred speech as well - though patient states she did not
appreciate this herself. In the ED patient states that her symptoms are significantly improved. She was able to ambulate to the bathroom without dizziness / ataxia. CT/CTA in the ED showed no intracranial abnormalities. MRI in the hospital
showed acute infarcts in the cerebellar vermis and left cerebellar hemisphere. Patient was started on aspirin and Plavix. MRI showed moderate spinal cord compression and central canal stenosis at C5-C6, Mild spinal cord compression and central
canal stenosis at C3/C4 and C4/C5 patient without neck pain or upper extremity complaints.
Overall she continues to feel better. She still has some difficulty with her balance and walking. She does have some difficulty with her vision even with her glasses on, specifically reading things far away. Has been a couple years since she has
had her eyes checked.
Physical Exam
Physical Exam
Physical Exam:
General Appearance/Observation: Well-developed, well-nourished female in no apparent distress.
Pain/Comfort Assessment: Denies
Mood/Affect: Appropriate
Integumentary/Operative Site:
Pressure Ulcer: absent
Eyes: Conjunctiva/Lids: normal Pupils: pupils equal round and reactive to light and Accommodation
Ears/Nose/Throat: oral mucosa moist, throat clear. Lips/Teeth/Gums: normal
Neck: No muscle spasm or tenderness
Cardiovascular: Heart: regular rate, regular rhythm, no murmur
Pulses: dorsalis pedis 2+ bilaterally
Respiratory: Respiratory Effort/Chest Expansion: normal Auscultation: Clear to auscultation bilaterally
Gastrointestinal: abdomen not tender, no distension, normal abdominal bowel sounds
Genitourinary: No Yañez
Rectal Exam: Deferred
Extremities: Edema: None Cyanosis: None Trophic changes: None
Neurology Exam:
Orientation: Alert, Oriented to self, Time, Place, situation
Memory: Intact immediately and at 3 minutes
Repetition: Intact
Comprehension: Intact
Two step command: Intact
Naming: Intact
Cranial Nerves:
CNII: Pupillary light reflex: Intact Visual Field: Intact. Had some difficulty reading medium sized words across the room even with her glasses on.
CN III, IV, : Extraocular muscles: Intact
CN V: Facial Sensation at Forehead: Intact , Maxilla: Intact, Mandible: Intact
CN VII: Facial movement: Symmetric
CN VIII: Hearing: Normal
CN IX/X: Speech & swallow: Slight dysarthria, Position of Uvula: Midline
CN XI: Shoulder shrug: Symmetric
CN XII: Tongue protrusion: Midline
Sensory:
Light touch: Intact in bilateral upper and lower extremities
Pinprick: Intact lower extremities
Proprioception: Intact
Reflexes:
Biceps: 2+ bilaterally
Brachioradialis: 2+ bilaterally
Triceps: 2+ bilaterally
Patellar: 2+ bilaterally
Achilles: 0 bilaterally
Babinski: Downgoing bilaterally
Clonus: None
Donnell: Negative bilaterally
Cerebellar: Dysmetria/Ataxia: Slight ataxia on the left
Musculoskeletal: Motor: (Manual muscle scale 0-5)
Muscle SA EF WE EE FF FA HF KE DF EHL PF
Right 5 5 5 4 5 5 4 5 5 5 5
Left 5 5 5 4 5 5 4 5 5 5 5
Tone: Normal in all extremities
Range of Motion: Passively within normal limits in all extremities
Assessment / Plan
Assessment
79 year old R-handed F with PMH (CAD, TN, concussions) who presented to [facility] 11/25/2024 for evaluation of dizziness and found with acute ischemic infarct in the cerebellar vermis, left cerebellar hemisphere. Also incidental finding of cervical
canal stenosis.
Plan
PM&R PT/OT to increase independence with ADLs, improve balance, coordination, endurance, strength, mobility, community reintegration, decreased burden of care on others and family education.
CVA: Secondary prophylaxis with aspirin/Plavix for 21 days through 12/15 with aspirin lifelong, statin, and blood pressure control (SBP less than 180 and diastolic less than 100 to participate with therapy for ischemic stroke). Continue to monitor
neurologic status.
- Follow-up with outpatient neurologist Dr. Liliana Ram.
-Slight dysarthria, follow-up with speech.
HTN: Amlodipine 2.5 mg daily. Monitor
HLD: Zetia, patient unable to tolerate statin
Coronary artery disease : Aspirin, Zetia, beta-alex. Noncompliant with aspirin use at home.
Cervical stenosis: Can follow-up with orthopedics or neurosurgery as outpatient.
Skin: monitor for pressure sores/rashes/lesions.
Pain: acetaminophen as needed.
Bowel: Colace and Senna, PRN bisacodyl.
Overactive bladder: Time void, PVRs, PRN straight cath. Detrol being held.
GI Prophylaxis: Pantoprazole
DVT Prophylaxis: SCDs
Safety: Continue to reinforce assistance with all transfers.
Code Status: Full code
Dispo: Acute rehab patient will benefit from PT/OT to increase independence with ADLs, improve balance, coordination, endurance, strength, mobility, community reintegration, decreased burden of care on others and family education.
Functional and Medical Goals: Modified Independent with ADL�s, ambulation, transfers
Attending Statement: I performed a history and examined the patient today.� I reviewed the care plan with therapy, nursing, and the resident.� I agree with the history and ROS above as modified.� The physical exam and plan documented reflects my
examination and plan. �A total of 60 minutes were spent with the patient preparing for the evaluation, obtaining history, performing examination and evaluation, counseling, data review, case management, care coordination, border measurer and cutter, and EMR
documentation.��������
� � � � �
[2024-11-27 03:31] VITALS: BP 124/53
[2024-11-27 07:18] VITALS: BP 144/71
[2024-11-27 07:21] VITALS: BP 105/61; BP 123/64; BP 144/71; PULSE 71; PULSE 73; PULSE 86
[2024-11-27 08:15] LABS: Hematocrit 38.0 % (37.0-47.0); Hemoglobin 13.4 g/dL (12.0-16.0); Mean Corp Hgb Conc. 35.3 g/dL (33.0-37.0); Mean Corpuscular Volume 87.2 fL (81.0-99.0); Platelet Count 164 10^3/uL (130-400); Red Cell Dist. Width 12.3 % (11.5-14.5)
[2024-11-27] MEDS: NORVASC 2.5 MG PO (08:28)
[2024-11-27] MEDS: ZETIA 10 MG PO (08:28)
[2024-11-27] MEDS: LOW STRENGTH ASPIRIN 81 MG PO (08:29)
[2024-11-27] MEDS: PLAVIX 75 MG PO (08:29)
[2024-11-27 08:56] LABS: ALT (SGPT) 13 U/L (0-35); AST (SGOT) 20 U/L (14-36); Albumin 3.7 g/dl (3.5-5.0); Alkaline Phosphatase 91 U/L (38-126); Blood Urea Nitrogen 17 mg/dl (7-17); Calcium 9.0 mg/dl (8.4-10.2); Carbon Dioxide 25 mmol/L (22-30); Chloride 107 mmol/L (98-107); Estimated Creatinine Clearance 59 ml/min; Glucose 96 mg/dl (70-99); Magnesium 1.9 mg/dl (1.6-2.3); Potassium 3.9 mmol/L (3.5-5.1); Sodium 137 mmol/L (135-145); Total Protein 6.3 g/dl (6.3-8.2); eGFR > 60.00
--- NOTE | 2024-11-27 10:24 | CM ---
Patient seen at bedside with physician on . Patient for discharge to [facility] today. CM spoke with Liaison, [facility] and she provided call number of [phone] for report. Auth confirmed with Saloni from Home and
[facility]/[id number] 11/27-12/03 next review date 12/03 and fax to [phone]. Patient completed IMM and signed form placed on chart. CM will continue to follow for discharge planning needs.
Plan; transfer to [facility] today.
--- NOTE | 2024-11-27 10:28 | W.PN.HOSP.TC ---
Today's Communication/Plan
-
d/c to [facility]
Assessment / Plan
Assessment / Plan
pt is a 79 year old female
acute cerebellar CVA, presents with Dizziness and resolved dysarthria--asa/plavix x 21 days followed by asa alone thereafter--LDL elevated, intolerant to statin--zetia started--? candidate for repatha?--apprec neuro--PT/OT/PM&R--d/c to [facility]
ASCVD--Patient with records clearly indicating prior RCA ESTEFANY--She does not take ASA daily despite prior recommendations--ASA + Plavix for now--Should take ASA daily indefinitely
Essential HTN --Allow permissive HTN for now--consider adding standing BP med after window for stroke --IV Hydralazine for very high BP.
overactive bladder--hold detrol acutely
DVT Proph--SCDs
Code Status--Full
Anticipated Discharge: Today
Subjective/Interval History
-
Date of Service: November 27, 2024
pt without c/o
Objective Data
-
Labs:
Laboratory Results
11/27/24
07:59
WBC 8.5
Hgb 13.4
Hct 38.0
Plt Count 164
Sodium 137
Potassium 3.9
Chloride 107
Carbon Dioxide 25
BUN 17
Creatinine 0.7
Glucose 96
Calcium 9.0
Total Bilirubin 0.8
AST 20
ALT 13
Alkaline Phosphatase 91
Vital Signs:
max temp for 24 hours
11/27/24
03:31
Temp 98.6 F
Vital Signs
Temp Pulse Resp BP Pulse Ox
98.4 F 75 16 124/53 96
11/27/24 07:18 11/27/24 08:28 11/27/24 07:18 11/27/24 08:28 11/27/24 07:18
I&O
11/26/24 11/27/24 11/28/24
06:59 06:59 06:59
Intake Total 1080 / 1080 480 / 480
Balance 1080 / 1080 480 / 480
Review of Systems
-
All other systems: Reviewed and negative
Physical Exam
-
General: Well Developed, Well Nourished and No Apparent Distress
HEENT: Normocephalic and Atraumatic
Respiratory: Clear to Auscultation; Negative Wheezes or Rhonchi
Cardiac: Regular Rhythm and S1/S2; Negative Murmur
GI: Soft, Nontender, Nondistended and Normal Bowel Sounds
Musculoskeletal: No Clubbing, No Cyanosis and No Edema
Neuro: Awake
[2024-11-27 11:40] VITALS: BP 114/52
--- NOTE | 2024-11-27 16:21 | W.DCSUMMARY ---
Discharge Summary
Discharge Data
Date of Admission: 11/25/24
Date of Discharge: 11/27/24
-
Pending Results: No
Hospital Course
Primary care physician : Kristopher Guzmán
Principal Discharge diagnosis : Acute cerebellar stroke
Chronic Discharge diagnosis : Atherosclerotic cardiovascular disease, essential hypertension, overactive bladder
Hospital Course : Patient is a 79-year-old female who presented complaining of dizziness. Patient stated that she developed dizziness early on the morning of admission sometime after waking up. She also describes feeling unsteady on her feet and
as if she were spinning in circles. She denied any vision changes. Family needed to assist her with walking so she would not fall. Her family also reported some slurred speech. There were no prior history of strokes although both of her parents
from strokes. She was recommended to take aspirin but has not. Patient was admitted.
Problem #1: Acute cerebellar stroke. Patient was admitted and workup was undertaken. Head CT showed no acute intracranial abnormalities. Head and neck CTA was also done which did not show any hemodynamically significant stenosis. MRI did show
acute ischemic infarcts in the cerebellar vermis and left cerebellar hemisphere as well as moderate white matter leukoaraiosis in the frontal and parietal lobes. Patient was seen in consultation by neurology. She was started on aspirin and Plavix
which she is to take for 21 days followed thereafter by aspirin alone. Lipid panel was done which showed cholesterol of 293, LDL of 193, triglycerides 212, with HDL 58. Patient unfortunately is intolerant to statins and Zetia was started. Perhaps
the patient is a candidate for Repatha? We will defer that decision to her primary care physician. Patient was also seen in consultation by physical therapy, Occupational Therapy, and physical medicine and rehabilitation. They are all
recommending acute inpatient therapy at [facility]. Patient has been accepted and is stable for discharge at this time.
Problem #2: All other medical issues. These include Atherosclerotic cardiovascular disease, essential hypertension, overactive bladder. These medical issues were stable during her hospitalization. Medications were continued as able.
Patient is stable for discharge to [facility] at this time. If there are any questions regarding this dictation or her hospital stay, please not hesitate to call. Our office number is [phone].
Time for discharge 35 minutes.
Important imaging findings :
HEAD CT IMPRESSION:
No acute intracranial abnormality.
HEAD and NECK CTA IMPRESSION:
No findings to suggest hemodynamically significant stenosis of the carotid arterial system bilaterally or internal carotid artery dissection bilaterally.
Dominant left vertebral artery.
No findings to suggest proximal intracranial arterial stenosis bilaterally.
Subcentimeter low-attenuation left lobe thyroid lesion too small to characterize. Consider elective Thyroid ultrasound for more complete evaluation.
BRAIN MRI IMPRESSION:
1. ACUTE ISCHEMIC INFARCTS in the CEREBELLAR VERMIS and LEFT CEREBELLAR HEMISPHERE.
2. Moderate white matter leukoaraiosis in the frontal and parietal lobes.
3. Mild diffuse cerebral and cerebellar volume loss.
4. Large amount of fluid in the right mastoid air cells.
5. Severe multilevel cervical discogenic degenerative disease.
6. Moderate spinal cord compression and central canal stenosis at C5/C6.
7. Mild spinal cord compression and central canal stenosis at C3/C4 and C4/C5.
Procedure findings :
Discharge Plan
-
Patient Disposition: Acute Rehab Facility
Discharge Diagnosis/Procedures: Acute cerebellar stroke, atherosclerotic cardiovascular disease, essential hypertension, overactive bladder
Condition: Good
Diet: Low Cholesterol
Activity: As tolerated
Driving Restrictions: not until cleared
Bathing Restrictions: None
Referrals:
Kristopher Guzmán, DO [Non-Admitting Privileges, Family Practice] - in less than 1 week
Additional Discharge Medication Instructions: Need to take BOTH aspirin and plavix (clopidogrel) for 21 days followed by aspirin alone thereafter
Prescriptions:
New
amlodipine 2.5 mg Tablet
2.5 mg PO DAILY Qty: 0 0RF
Rx Instructions:
hold for SBP < 100
clopidogrel 75 mg Tablet
75 mg PO DAILY Qty: 0 0RF
acetaminophen 325 mg Tablet
650 mg PO Q4HPRN PRN (Reason: Mild Pain / Temp > 101) Qty: 0 0RF
ezetimibe 10 mg Tablet
10 mg PO DAILY Qty: 0 0RF
aspirin 81 mg Tablet,Chewable
81 mg PO DAILY Qty: 0 0RF
Continued
tolterodine 4 mg Capsule,Extended Release 24hr
4 mg PO DAILY
Discharge Orders:
Discharge Patient (As Directed); Ordered 11/27/24
Ordered By: Saloni Swann
Discharge Date and Time
Discharge Date/Time: 11/27/24 14:39
Print Language: KYRGYZ
== END 2024-11-27 14:39 | DRG 65 ==
LOC: 4 EAST ACU 12:00
PROVIDERS: Internal Medicine; ADMITTING PHYSICIAN Hospitalist; ATTENDING PHYSICIAN Internal Medicine; CONSULT PHYSICIAN Physical Medicine & Rehabilitation; CONSULT PHYSICIAN Psychiatry & Neurology Neurology; EMERGENCY PHYSICIAN Emergency Medicine
DX: I63.549 Cerebral infarction due to unspecified occlusion or stenosis of unspecified cerebellar artery (principal); G95.20 Unspecified cord compression; I10 Essential (primary) hypertension; I25.10 Atherosclerotic heart disease of native coronary artery without angina pectoris; N32.81 Overactive bladder; K21.9 Gastro-esophageal reflux disease without esophagitis; F32.A Depression, unspecified; F41.9 Anxiety disorder, unspecified; E07.9 Disorder of thyroid, unspecified; E78.00 Pure hypercholesterolemia, unspecified; M48.02 Spinal stenosis, cervical region; I25.2 Old myocardial infarction; Z88.5 Allergy status to narcotic agent; Z88.1 Allergy status to other antibiotic agents; Z91.148 Patient's other noncompliance with medication regimen for other reason; Z95.5 Presence of coronary angioplasty implant and graft; Z96.651 Presence of right artificial knee joint
CPT/HCPCS: 70450; 70496; 70498; 70551; 80048; 80053; 80061; 81003; 81015; 82962; 83036; 83735; 84132; 84443; 84484; 85025; 85027; 85610; 85730; 92507; 92523; 93005; 97116; 97163; Q9967

== ENCOUNTER 2024-12-01 17:11 | Inpatient (IN) | payer MEDICARE, SELFPAY ==
[2024-11-30] VITALS (10 sets, daily range): BP systolic 126–172; BP diastolic 55–84; BMI 31.8; BMI 30.2
--- NOTE | 2024-11-30 12:02 | EDRN ---
Stroke alert called. Rosemarie at bedside.
--- NOTE | 2024-11-30 12:08 | ED.CVA ---
History of Present Illness
<DO Trupti Edwards Last Filed: 11/30/24 18:22>
General
Chief Complaint: CVA/TIA Symptoms
Source: patient and family
Time Seen by Provider: 11/30/24 11:57
Onset of Stroke Symptoms
Onset of symptoms known: No
Time pt last seen normal is known: No
History of Present Illness
History of Present Illness:
79-year-[facility] suffering a cerebellar stroke was brought by family for evaluation of worsening symptoms. Family noted that she has slurred speech that is reminiscent of the onset of her symptoms.
She seems confused. Slow to answer questions. She was essentially back to normal after starting rehab. She is able to describe what she has for breakfast etc. Today she cannot describe what she had for breakfast or family as an example. Patient
indicates she is not having a headache.
Past History
<Corey Houston DO - Last Filed: 11/30/24 18:22>
Past History
ED Past Medical History: CAD, OH and Psychiatric (Anxiety, Depression)
ED Past Surgical History: Cardiac (Stents) and Orthopedic (Spinal surgery)
Social History
Tobacco: Non-smoker
Alcohol: Occasional
Personal:
Living: alone
Phy Exam
<DO Trupti Edwards Last Filed: 11/30/24 18:22>
Physical Exam
Physical Exam:
General: Awake, Alert, Oriented X3. No acute distress.
Vitals: unremarkable
Head: Atraumatic
Eyes: Pupils equal, EOMI
Throat: Airway intact, no exudates
Neck: Trachea midline
Lungs: Clear and equal b/l
Heart: Regular rate, no murmurs
Abd: Soft, Nontender, No pulsatile mass
Neuro: Right facial droop, mildly slurred speech, mild aphasia
Skin: Warm, dry, no rash
Extremities: pulses equal b/l, no edema
Scores
<Corey Houston DO - Last Filed: 11/30/24 18:22>
NIH Stroke Score
Level of Consciousness: 0 - Alert
LOC Questions: 0-Answers both correctly
LOC Commands: 0-Performs both correctly
Best Horizontal Gaze: 0-Normal
Visual Raymundo: 0=Normal, no visual loss
Facial Palsy: 1=Minor paralysis
Motor - Right Arm: 0=No drift 10 seconds
Motor - Left Arm: 0=No drift 10 seconds
Motor - Right Le-No drift 5 seconds
Motor - Left Le-No drift 5 seconds
Limb Ataxia: 0-Absent
Sensation: 0-Normal
Best Language: 1-Mild aphasia
Dysarthria: 1-Mild slurring
Extinction and Inattention: 0-No abnormality
NIH Total Score:: 3
<Talon Hyde MD - Last Filed: 11/30/24 14:48>
NIH Stroke Score
NIH Total Score:: 3
Course
<Corey Houston DO - Last Filed: 11/30/24 18:22>
Orders/Labs/Results
Orders:
Orders
11/30/24 12:00
CT HEAD STROKE ALERT W/o Cont Urgent
Comment:
Reason For Exam: slurred speech
11/30/24 12:27
Complete Blood Count/With Diff Urgent
Comprehensive Metabolic Panel Urgent
11/30/24 13:05
Urinalysis Reflex To Culture Urgent
Date Specimen was Collected: 11/30/24
Time Specimen was Collected: 13:01
Urine Microscopic Reflex Cult Urgent
Urine Culture Urgent
MARILYN Source: U
Specimen Description:
Date Specimen was Collected: 11/30/24
Time Specimen was Collected: 13:01
11/30/24 15:02
B12 [Vitamin B12] Routine
MR Brain Without Contrast Routine
Comment:
Reason For Exam: stroke
OK for patient to be off Cardiac Monitoring for MRI: No
Recent pill cam endoscopy?: No
12/01/24 08:00
Aspirin Chewable [Low Strength Aspirin] 81 mg PO DAILY
Clopidogrel Bisulfate [Plavix] 75 mg PO DAILY
Abnormal Lab Results
11/30/24 11/30/24
12:27 13:05
Eosinophils % 6.6 H %
(0-6)
BUN 20 H mg/dl
(7-17)
Leukocyte Esterase Rfl 1+ A
(Negative)
Urine Bacteria (Reflex) Few A
(Negative)
11/30/24 12:27
11/30/24 12:27
Vital Signs
Initial and Last Documented VS:
Initial Vital Signs
Temp Pulse Resp BP Pulse Ox
97.4 F 76 17 159/73 99
11/30/24 11:51 11/30/24 11:51 11/30/24 11:51 11/30/24 11:51 11/30/24 11:51
Last Documented Vital Signs
Temp Pulse Resp BP Pulse Ox
97.4 F 75 22 171/84 96
11/30/24 11:51 11/30/24 17:30 11/30/24 17:30 11/30/24 17:00 11/30/24 16:45
<Talon Hyde MD - Last Filed: 11/30/24 14:48>
Orders/Labs/Results
Orders:
Orders
11/30/24 12:00
CT HEAD STROKE ALERT W/o Cont Urgent
Comment:
Reason For Exam: slurred speech
11/30/24 12:27
Complete Blood Count/With Diff Urgent
Comprehensive Metabolic Panel Urgent
11/30/24 13:05
Urinalysis Reflex To Culture Urgent
Date Specimen was Collected: 11/30/24
Time Specimen was Collected: 13:01
Urine Microscopic Reflex Cult Urgent
Urine Culture Urgent
MARILYN Source: U
Specimen Description:
Date Specimen was Collected: 11/30/24
Time Specimen was Collected: 13:01
11/30/24 15:02
B12 [Vitamin B12] Routine
MR Brain Without Contrast Routine
Comment:
Reason For Exam: stroke
OK for patient to be off Cardiac Monitoring for MRI: No
Recent pill cam endoscopy?: No
12/01/24 08:00
Aspirin Chewable [Low Strength Aspirin] 81 mg PO DAILY
Clopidogrel Bisulfate [Plavix] 75 mg PO DAILY
Abnormal Lab Results
11/30/24 11/30/24
12:27 13:05
Eosinophils % 6.6 H %
(0-6)
BUN 20 H mg/dl
(7-17)
Leukocyte Esterase Rfl 1+ A
(Negative)
Urine Bacteria (Reflex) Few A
(Negative)
11/30/24 12:27
11/30/24 12:27
Vital Signs
Initial and Last Documented VS:
Initial Vital Signs
Temp Pulse Resp BP Pulse Ox
97.4 F 76 17 159/73 99
11/30/24 11:51 11/30/24 11:51 11/30/24 11:51 11/30/24 11:51 11/30/24 11:51
Last Documented Vital Signs
Temp Pulse Resp BP Pulse Ox
97.4 F 75 22 171/84 96
11/30/24 11:51 11/30/24 17:30 11/30/24 17:30 11/30/24 17:00 11/30/24 16:45
Oseilt;Corey Houston DO - Last Filed: 11/30/24 18:22>
MDM/Problems Addressed
Differential Diagnosis Includes:
New CVA, bleed in the previous CVA, electrolyte abnormality, dehydration
MDM/Problems Addressed:
Patient presents with recurrence of slurred speech, confusion. CT here shows no acute changes but the existing several strokes are noted. Patient seen by neurology. Recommend admission for observation and repeat neurologic exams
<Corey H. DO Rosemarie - Last Filed: 11/30/24 18:22>
*Radiology
Radiology exam reviewed: radiology read reviewed
*Pulse Oximetry
SaO2: 98
Oxygen Mode of Delivery: Room air
Patient hypoxic: no
*Virtual Assistant For [employer] Interpretation
Rate: normal
Interpretation: normal
Rhythm: sinus
*Critical Care Note
Total Time (30-74mins, 75-104mins- exclusive of procedures): 34 min
comment:
Critical care statement: A total of 33 minutes of critical care time was provided for this patient. This includes management of unstable vital signs, evaluation of the patient at bedside, reviewing the patient's pertinent medical records, discussion
with consultants, review of old EKGs and review of pertinent medical records. This time with separate from time utilized to perform the aforementioned documented procedures
ED Attending Note
<Corey H. DO Rosemarie - Last Filed: 11/30/24 18:22>
-
Portions of this chart may have been created with voice recognition software.� Occasional wrong word or��sound alike� substitutions may have occurred due to the inherent limitations of voice recognition software.
Discharge Plan
Departure
Patient Disposition: Admit
Date of Disposition: 11/30/24
Time of Disposition: 14:07
Presentation/result/management discussed w/ accepting MD/DO: Hospitalist
Condition: Fair
Discharge Problem:
Acute CVA (cerebrovascular accident)
Prescriptions:
No Action
amlodipine 2.5 mg Tablet
2.5 mg PO DAILY Qty: 0 0RF
Rx Instructions:
hold for SBP < 100
clopidogrel 75 mg Tablet
75 mg PO DAILY Qty: 0 0RF
acetaminophen 325 mg Tablet
650 mg PO Q4HPRN PRN (Reason: Mild Pain / Temp > 101) Qty: 0 0RF
sennosides [senna] 8.6 mg Tablet
17.2 mg PO DAILY
tolterodine [Detrol LA] 4 mg Capsule,Extended Release 24hr
4 mg PO DAILY
aspirin 81 mg Tablet,Delayed Release (Dr/Ec)
810 mg PO DAILY
meclizine 25 mg Tablet
25 mg PO BID
bisacodyl [Dulcolax (bisacodyl)] 10 mg Suppository
10 mg SC DAILYPRN PRN (Reason: constipation)
pantoprazole [Protonix] 40 mg Tablet,Delayed Release (Dr/Ec)
40 mg PO DAILY
docusate sodium [Colace] 100 mg Capsule
100 mg PO BID
bisacodyl [Dulcolax (bisacodyl)] 5 mg Tablet,Delayed Release (Dr/Ec)
10 mg PO DAILYPRN PRN (Reason: constipation)
enoxaparin [Lovenox] 40 mg/0.4 mL Syringe
40 mg SC QPM
ezetimibe 10 mg tablet
10 mg PO HS
Referrals:
Kristopher Guzmán DO [Family Provider, Family Practice]
Interventions
Interventions:
*Risk Screen - Suicide Last Done: 11/30/24 11:55
*General Assessment Last Done: 11/30/24 11:55
*Neglect/Abuse Screening Last Done: 11/30/24 11:55
*ED COVID-19 Vaccine History Last Done: 11/30/24 11:55
ED- Pulmonary Assessment Last Done: 11/30/24 12:32
ED- Neurological Assessment Last Done: 11/30/24 12:32
ED- Cardiac Assessment Last Done: 11/30/24 12:32
ED Swallowing Screen Last Done: 11/30/24 12:32
Discharge Date and Time
Print Language: UPPER SORBIAN
[2024-11-30 12:27] LABS: Glucose - Point of Care 73 mg/dl (70-99)
[2024-11-30 12:36] LABS: Hematocrit 44.2 % (37.0-47.0); Hemoglobin 15.2 g/dL (12.0-16.0); Mean Corp Hgb Conc. 34.4 g/dL (33.0-37.0); Mean Corpuscular Volume 87.5 fL (81.0-99.0); Nucleated Red Blood Cells % 0 %; Platelet Count 205 10^3/uL (130-400); Red Cell Dist. Width 12.4 % (11.5-14.5)
--- NOTE | 2024-11-30 12:38 | CON.NEURO ---
Consultation
Order
Date of Consultation: 11/30/24
Requesting Provider:
Reason for Consult: Stroke alert
Neurology Consultation Note.
HPI: This is a 79-year-old right-handed woman who presented to [facility] on 11/30/2024 with dysarthria and encephalopathy
Ms. Mcwilliams reports no complaints. She denies having headaches, change in vision or strength. The patient's daughter reports that her mother was doing well until yesterday.
The change in status was first observed last night when the patient's other daughter spoke to her on the phone and noticed dysarthria. The patient's confusion became apparent this morning when she was unable to accurately recall what she had for
breakfast, stating she had '2 cups of sugar, 2 cups of tea, 2 cups of broth, and 2 cups of eggs,' which is unusual for her. The patient also demonstrated confusion during a conversation with her daughter, providing nonsensical responses to questions
about recent events.
Prior to the current hospitalization, the patient had been living with her daughter due to concerns about her balance and safety. The patient has a history of head concussion
The patient's cognitive decline has been gradual over the past few years. She stopped driving about two years ago after getting lost during a trip to a car wash, which resulted in a distressing 2.5-hour search to locate her. The patient has also
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
ER VS: 154/67, 76, afebrile
EKG(11/26/2024) NSR, QTcB Int : 515 ms
PDMP: No recently prescribed medications.
Labs: Normal WBCs, sodium, creatinine, glucose; UA 1+ leukocyte esterase, positive for bacteria.
Labs (11/26/2023) LDL�193, hemoglobin A1c�5.3
CT head wo contrast-stable 2 small subacute left cerebellar infarcts.
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
PSH:
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
FH: mother- of stroke at age 77
All: Statins, morphine, levofloxacin
ROS: General: Negative for pain.
HEENT: Negative for headache, vision changes.
Gastrointestinal: Negative for nausea.
Neurological: Positive for confusion, disorientation, slurred speech.
General: Well developed. In no acute distress.
Cardio: Regular rate and rhythm without murmur. Extremities are without cyanosis or edema.
Neuro:
Mental Status: Alert, oriented to person, place, and date. Mildly impaired in attention and preserved comprehension. Follows simple requests consistently. No hemineglect.
Cranial Nerves: Pupils are equally round and reactive to light. EOMs full. Visual thurman full to confrontation. No ptosis. No nystagmus. V1-V3 intact to light touch and pinprick bilaterally, symmetric. Face symmetric. Normal hearing AU. The
palate elevated well. SCMs and traps 5/5. Tongue midline. Mild dysarthria.
Motor: Normal bulk and tone. No pronator or arm drift. Strength 5/5 throughout. No clonus.
Reflexes: Negative grasp bilaterally
Coordination: No dysmetria or tremor.
Gait: deferred
Assessment and Plan:
I. Recrudescence of recent stroke symptoms versus new infarct. Not a candidate for IV TNK due to recent acute infarct.
II. Subacute left PICA/SCA stroke.
III. Mixed encephalopathy (vascular, question known neurodegenerative)
- Continue Telemetry monitoring
- Please repeat brain MRI without luana
- Continue DAPT
- Follow-up urine culture
- Check TFTs, vitamin B12, and MAR list in rehab.
- PT.
- DVT prophylaxis.
I personally reviewed all radiology and labs along with past medical records pertinent to current medical problems. Total time spent in patient care is 60 minutes.
Thank you for allowing us to participate in the care of this patient. We will continue to follow. Please do not hesitate to contact us with any questions or concerns.
Subjective/Objective
Subjective Data
Date of Service: November 30, 2024
Objective Data
Vital Signs
Temp Pulse Resp BP Pulse Ox
36.3 C 71 18 159/73 98
11/30/24 11:51 11/30/24 12:04 11/30/24 12:04 11/30/24 11:51 11/30/24 12:32
Lab Results
11/30/24 12:27
Patient Allergies
levofloxacin (From Levaquin) Allergy (Verified 11/30/24 11:55)
Anaphylaxis
morphine Allergy (Verified 11/30/24 11:55)
Vomiting
[id number] Reductase Inhibitor Adverse Reaction (Intermediate, Verified 11/30/24 11:55)
back pain
Medications
-
Home Medications
�Medication �Instructions �Recorded
acetaminophen 325 mg tablet 650 mg (2 x 325 mg) PO Q4HPRN PRN 11/27/24
Mild Pain / Temp > 101 #0 tabs
amlodipine 2.5 mg tablet 2.5 mg PO DAILY #0 tabs 11/27/24
clopidogrel 75 mg tablet 75 mg PO DAILY #0 tabs 11/27/24
aspirin 81 mg tablet,delayed 810 mg PO DAILY 11/30/24
release
bisacodyl 10 mg rectal suppository 10 mg LA DAILYPRN PRN constipation 11/30/24
(Dulcolax (bisacodyl))
bisacodyl 5 mg tablet,delayed 10 mg PO DAILYPRN PRN constipation 11/30/24
release (Dulcolax (bisacodyl))
docusate sodium 100 mg capsule 100 mg PO BID 11/30/24
(Colace)
enoxaparin 40 mg/0.4 mL 40 mg SC QPM 11/30/24
subcutaneous syringe (Lovenox)
ezetimibe 10 mg tablet 10 mg PO HS 11/30/24
meclizine 25 mg tablet 25 mg PO BID 11/30/24
pantoprazole 40 mg tablet,delayed 40 mg PO DAILY 11/30/24
release (Protonix)
sennosides 8.6 mg tablet (senna) 17.2 mg PO DAILY 11/30/24
tolterodine 4 mg capsule,extended 4 mg PO DAILY 11/30/24
release 24 hr (Detrol LA)
Vital Signs and Labs
-
Vital Signs and Labs:
Vital Signs
Temp Pulse Resp BP Pulse Ox
36.3 C 75 25 137/78 96
11/30/24 11:51 11/30/24 14:18 11/30/24 14:18 11/30/24 14:01 11/30/24 13:45
Lab Results
11/30/24 12:27
11/30/24 12:27
Sodium 139 mmol/L (135-145) 11/30/24 12:27
Potassium 4.5 mmol/L (3.5-5.1) 11/30/24 12:27
BUN 20 mg/dl (7-17) H 11/30/24 12:27
Glucose 88 mg/dl (70-99) 11/30/24 12:27
Calcium 9.9 mg/dl (8.4-10.2) 11/30/24 12:27
Home Medications
-
Home Medications
acetaminophen 325 mg tablet 650 mg (2 x 325 mg) PO Q4HPRN PRN Mild Pain / Temp > 101 #0 tabs 11/27/24
amlodipine 2.5 mg tablet 2.5 mg PO DAILY #0 tabs 11/27/24
clopidogrel 75 mg tablet 75 mg PO DAILY #0 tabs 11/27/24
aspirin 81 mg tablet,delayed release 810 mg PO DAILY 11/30/24
bisacodyl 10 mg rectal suppository (Dulcolax (bisacodyl)) 10 mg LA DAILYPRN PRN constipation 11/30/24
bisacodyl 5 mg tablet,delayed release (Dulcolax (bisacodyl)) 10 mg PO DAILYPRN PRN constipation 11/30/24
docusate sodium 100 mg capsule (Colace) 100 mg PO BID 11/30/24
enoxaparin 40 mg/0.4 mL subcutaneous syringe (Lovenox) 40 mg SC QPM 11/30/24
ezetimibe 10 mg tablet 10 mg PO HS 11/30/24
meclizine 25 mg tablet 25 mg PO BID 11/30/24
pantoprazole 40 mg tablet,delayed release (Protonix) 40 mg PO DAILY 11/30/24
sennosides 8.6 mg tablet (senna) 17.2 mg PO DAILY 11/30/24
tolterodine 4 mg capsule,extended release 24 hr (Detrol LA) 4 mg PO DAILY 11/30/24
[2024-11-30 12:52] LABS: ALT (SGPT) 17 U/L (0-35); AST (SGOT) 28 U/L (14-36); Albumin 4.5 g/dl (3.5-5.0); Alkaline Phosphatase 95 U/L (38-126); Blood Urea Nitrogen 20 mg/dl (7-17); Calcium 9.9 mg/dl (8.4-10.2); Carbon Dioxide 28 mmol/L (22-30); Chloride 104 mmol/L (98-107); Estimated Creatinine Clearance 58 ml/min; Glucose 88 mg/dl (70-99); Potassium 4.5 mmol/L (3.5-5.1); Sodium 139 mmol/L (135-145); Total Protein 7.7 g/dl (6.3-8.2); eGFR > 60.00
[2024-11-30 13:12] LABS: Urine Character Clear (Clear)
[2024-11-30 13:20] LABS: Urine Red Blood Cell 0-2 /HPF (0-2); Urine Squamous Cell 0-2 /LPF (Few); Urine White Cell 0-2 /HPF (0-5)
--- NOTE | 2024-11-30 14:40 | HPS.HSE ---
Family Physician
-
Family Physician: Kristopher Guzmán
Chief Complaint
-
Confusion, Slurred Speech
History of Present Illness
79 y/o female with past medical history of recent cerebellar strokes, coronary artery disease, and overactive bladder, presented with confusion, slurred and nonsensical speech as per patient's daughter Josie. Patient was recently diagnosed with
cerebellar strokes, and was placed on Aspirin and Plavix for 21 days, followed by discharge to [facility]. Patient was recently started on Meclizine for dizziness at [facility], and soon after her confusion and speech issues started. Patient denied
any fever, chest pain, shortness of breath, cough, new skin rash, joint swelling, burning with urination, abdominal pain or increased urinary frequency.
Medical History
Past Medical History
Past Medical History: Reports Other (As per HPI above)
Past Surgical History: Reports Other
Additional Past Surgical History:
PTCA with ESTEFANY to RCA (2011)
Right TKA
Social History
Tobacco: Non-smoker
Alcohol: Occasional
Drug: None
Family History
Family History: Not pertinent
Allergies / Home Medications
Allergies reflects when Allergies were last updated in [facility].
Home Medications with original date entered in [facility]
Allergy/Medication List:
Allergies
Allergy/AdvReac Type Severity Reaction Status Date / Time
levofloxacin (From Levaquin) Allergy Anaphylaxis Verified 11/30/24 11:55
morphine Allergy Vomiting Verified 11/30/24 11:55
[id number] Reductase AdvReac Intermediate back pain Verified 11/30/24 11:55
Inhibitor
Home Medications
acetaminophen 325 mg tablet 650 mg (2 x 325 mg) PO Q4HPRN PRN Mild Pain / Temp > 101 #0 tabs 11/27/24
amlodipine 2.5 mg tablet 2.5 mg PO DAILY #0 tabs 11/27/24
clopidogrel 75 mg tablet 75 mg PO DAILY #0 tabs 11/27/24
aspirin 81 mg tablet,delayed release 810 mg PO DAILY 11/30/24
bisacodyl 10 mg rectal suppository (Dulcolax (bisacodyl)) 10 mg ID DAILYPRN PRN constipation 11/30/24
bisacodyl 5 mg tablet,delayed release (Dulcolax (bisacodyl)) 10 mg PO DAILYPRN PRN constipation 11/30/24
docusate sodium 100 mg capsule (Colace) 100 mg PO BID 11/30/24
enoxaparin 40 mg/0.4 mL subcutaneous syringe (Lovenox) 40 mg SC QPM 11/30/24
ezetimibe 10 mg tablet 10 mg PO HS 11/30/24
meclizine 25 mg tablet 25 mg PO BID 11/30/24
pantoprazole 40 mg tablet,delayed release (Protonix) 40 mg PO DAILY 11/30/24
sennosides 8.6 mg tablet (senna) 17.2 mg PO DAILY 11/30/24
tolterodine 4 mg capsule,extended release 24 hr (Detrol LA) 4 mg PO DAILY 11/30/24
Review of Systems
-
A 12 point ROS was completed and negative except as noted: Yes
Physical Exam
Vital Signs
Vital Signs
Temp Pulse Resp BP Pulse Ox
97.4 F 75 25 137/78 96
11/30/24 11:51 11/30/24 14:18 11/30/24 14:18 11/30/24 14:01 11/30/24 13:45
Physical Exam
General: No Apparent Distress
HEENT: NormoCephalic and Moist mucous membranes
Respiratory: Clear
Cardiac: S1/S2 and Regular Rhythm
GI: Soft, Non Tender and Normal Bowel Sounds
Musculoskeletal: No Cyanosis and No Edema
Skin: Warm and Dry
Neuro: Awake, Alert, AO x 3, Nonfocal/grossly intact, Cranial Nerves Intact (except mild dysarthria) and No Sensory Deficits
Psych: Calm and Intact Judgment/Insight
Laboratory Results
-
11/30/24 12:27
11/30/24 12:27
Laboratory Results
Total Bilirubin 0.9 mg/dl (0.2-1.3) 11/30/24 12:27
AST 28 U/L (14-36) 11/30/24 12:27
ALT 17 U/L (0-35) 11/30/24 12:27
Alkaline Phosphatase 95 U/L (38-126) 11/30/24 12:27
Impression/Plan
-
Assessment/Plan
Presentation with Confusion/Slurring Speech/Tired
-Not suspecting infection no signs or symptoms of any infection as mentioned in HPI; UA looked unremarkable although urine culture was ordered
-Recheck MRI Brain
-Thiamine and Multivitamins
-Check Vitamin B12
-Check ammonia, TSH, magnesium and phosphorus
-Unlikely to be adrenal insufficiency
-Discussed holding Tolterodine as it is an anticholinergic medication and can cause confusion among other side effects in the elderly (Beers Criteria) -- but family wants patient to be continued on the Tolterodine
-Bladder Scans protocol
-Constipation? Ensure good bowel regimen -- I spoke with [facility] nurse who told me last bowel movement normal brown on 11/29/24
-Appreciate neurology given recent stroke -- patient's daughter says the symptoms she is having today is similar to what she had when she presented to the hospital for 11/25/24 to 11/27/24 hospitalization
-MRI Brain ordered
-If new stroke on MRI, then DAPT for another 21 days. If no new strokes, then DAPT until 12/15/24 (the existing 21 day regimen from last admission)
-Stop Meclizine was started the night before
Recent Acute cerebellar strokes diagnosed in 11/25/24 to 11/27/24 hospitalization at [facility] - appeared to have 3 acute cerebellar strokes on MRI last admission
-Appeared to have 3 cerebellar strokes on MRI last admission
-Continue current DAPT therapy for 21 days total through 12/15/24 (first day was 11/25/24) -- or if new strokes, then will need to reset the 21 day clock
-Lipid panel was done which showed cholesterol of 293, LDL of 193, triglycerides 212, with HDL 58. Patient unfortunately is intolerant to statins and Zetia was started. Perhaps the patient is a candidate for Repatha?
-Paroxysmal A-Fib? May need an outpatient heart monitor arranged by cardiology.
-Continue to monitor on telemetry and watch for A-Fib
-If new stroke on MRI, then DAPT for another 21 days. If no new strokes, then DAPT until 12/15/24 (the existing 21 day regimen from last admission)
Prior RCA ESTEFANY (as per records)
-During the last admission, it was noted that patient did not take ASA daily despite prior recommendations
-ASA + Plavix for now (as above) -- should take ASA daily indefinitely
Essential Hypertension
-Continue Amlodipine (I confirmed this with neurologist Dr. Ryan at the time of admission)
Hyperlipidemia
-Per reports and per patient's daughter, patient cannot tolerate a statin
-Continue Zetia
Overactive bladder
-Although Tolterodine has anticholinergic side effects which can contribute to patient's presentation, patient's family wants to continue it and monitor for now
Cervical stenosis
Left lobe thyroid lesion
Skin/psoriasis
DVT Prophylaxis: Lovenox
Code Status: Full Code
I extensively spoke to both of patient's daughters today.
--- NOTE | 2024-11-30 18:00 | EDRN ---
Pts daughter out in hallway asking for help taking pt to bathroom, this RN was notified of this by registration. This RN unhooked pts wires so pt could walk to bathroom. Pt walked with steady gait. Explained to daughter and pt to please use call
higuera. Showed pt again how to use call higuera and press like she is changing the channels on the TV. Pt placed back in bed with bed alarm on. Explained delays with admission orders.
--- NOTE | 2024-11-30 21:30 | PTCARENOTE ---
Pt received from ED via stretcher at 2100. Pt pleasant, AAOx3, VSS, and able to ambulate into room with assistance. Pt receptive to room and call higuera. Pt bed in lowest position and call higuera within reach. Pt educated on importance of call higuera
usage, pt relays limited understanding and cooperation. Bed alarm placed and plugged in. Will continue with current plan of care.
[2024-11-30] MEDS: VITAMIN B1 100 MG PO (21:59)
[2024-11-30] MEDS: COLACE 100 MG PO (22:52)
[2024-11-30] MEDS: LOVENOX 40 MG SC (22:52)
[2024-11-30] MEDS: ZETIA 10 MG PO (22:52)
[2024-12-01] VITALS (8 sets, daily range): BP systolic 116–136; BP diastolic 64–88; PULSE 89; O2SAT 95–97
[2024-12-01 00:31] LABS: Vitamin B12 406 pg/ml (239-931)
[2024-12-01 07:33] LABS: Ammonia < 9 umol/L (9-30)
[2024-12-01] MEDS: VITAMIN B1 100 MG PO ×2 (07:54→19:24)
[2024-12-01] MEDS: LOW STRENGTH ASPIRIN 81 MG PO (07:54)
[2024-12-01] MEDS: PROTONIX 40 MG PO (07:54)
[2024-12-01] MEDS: DETROL LA 4 MG PO (07:54)
[2024-12-01] MEDS: SENOKOT 17.2 MG PO (07:54)
[2024-12-01] MEDS: COLACE 100 MG PO ×2 (07:54→19:24)
[2024-12-01] MEDS: PLAVIX 75 MG PO (07:55)
[2024-12-01] MEDS: NORVASC 2.5 MG PO (07:55)
[2024-12-01 07:56] LABS: Magnesium 2.2 mg/dl (1.6-2.3)
[2024-12-01] MEDS: THERAGRAN 1 TABLET PO (07:56)
--- NOTE | 2024-12-01 10:22 | W.PN.HOSP.TC ---
Addendum entered and electronically signed by Mer Good MD 12/01/24 17:11:
updated pt's 2 daughters on the phone on the MRI brain finding of new stroke in the L thalamus.
Answered all questions.
Original Note:
Today's Communication/Plan
-
see A/P
Assessment / Plan
Assessment / Plan
HPI: 79 y/o female with past medical history of recent cerebellar strokes, coronary artery disease, and overactive bladder, presented from [facility] with confusion, slurred and nonsensical speech as per patient's daughter Josie.
Patient was recently diagnosed with cerebellar strokes, and was placed on Aspirin and Plavix for 21 days and discharged to [facility]. Patient was recently started on Meclizine for dizziness at [facility], and soon after her confusion and speech
issues started.
A/P:
# Confusion/Slurred Speech/Lethargy
Urine culture sent from admission, follow up
CT head this admission noted stable 2 small subacute left cerebellar infarcts.
Neuro on board, [facility] MRI brain
Dr Hyde discussed holding Tolterodine (anticholinergic) with family, however family wants patient to be continued on Tolterodine
Stopped Meclizine
Monitor MS
# Recent acute cerebellar strokes
Cont [facility] [employer] DAPT with planned stop date 12/15/24, then ASA thereafter
Cont Zetia was was recently started (pt intolerant to statin)
PT OT eval
# Essential Hypertension
Continue Amlodipine
# Hyperlipidemia
Cont Zetia was was recently started (pt intolerant to statin)
# Overactive bladder
Cont Tolterodine per family
# Cervical stenosis
# Left lobe thyroid lesion
# Skin/psoriasis
DVT Prophylaxis: Lovenox SQ
Code Status: Full Code
updated daughter Josie on the phone
total time 51 min
Anticipated Discharge: 24 - 48 hours
Subjective/Interval History
-
Date of Service: December 01, 2024
Objective Data
-
Vital Signs:
Vital Signs
Temp Pulse Resp BP Pulse Ox
37.0 C 72 16 135/65 99
12/01/24 07:00 12/01/24 07:00 12/01/24 07:00 12/01/24 07:00 12/01/24 07:00
Review of Systems
-
History Source: Patient
All other systems: Reviewed and negative
Physical Exam
-
General: Well Developed, Well Nourished, No Apparent Distress, Comfortable and Conversant
HEENT: Normocephalic and Atraumatic
Respiratory: Clear to Auscultation and Non Labored Respirations; Negative Accessory Resp Muscle Use
Cardiac: Regular Rhythm and S1/S2
GI: Soft, Nontender, Nondistended and Normal Bowel Sounds
Musculoskeletal: No Clubbing, No Cyanosis and No Edema
Neuro: Awake and Alert; Negative Slurred Speech or Facial Droop
Psych: Calm and Intact Judgement/Insight
Data Reviewed
-
CT Scan: Report Reviewed by me
Labs: Labs Reviewed by me
Old Records: Reviewed
--- NOTE | 2024-12-01 10:40 | CM ---
Patient seen bedside, initial assessment completed. Patient is a 79 y/o female with past medical history of recent cerebellar strokes, coronary artery disease, and overactive bladder, presented with confusion, slurred and nonsensical speech.
Recent admission from [facility] (11/25-11/27), patient was d/c to [facility] Prev, patient resides w/ daughter in a 2STH, 4 or 5 steps to enter from the outside. Patient is independent w/ ambulation, has a RW that she uses when outside. Patient is independent w/ ADLs.
Address, points of contact and insurance verified
PCP: Kristopher Guzmán
Pharmacy: [facility]
Patient currently admitted obs. SCHILL[facility] form verbally reviewed, copy provided, copy on chart
Therapy assessed patient and is recommending patient to return to [facility] to continue acute rehab. Per chart note, patient would like to d/c home
Plan: Acute rehab vs home
--- NOTE | 2024-12-01 12:11 | W.PN.NEURO.1 ---
Today's Communication / Plan
-
Unfortunately, the patient declines to use cholesterol-lowering agents which would further reduce the risk of stroke. Alternative such as Ezetimibe would be an option if the patient continues to decline to use atorvastatin
Continue aspirin and clopidogrel for an additional 21 days
Goal of normotension
Rehabilitation evaluations and treatment
Neuro Assessment/Plan
Assessment
I. Patient demonstrated in the above MRI of the brain and acute ischemic left thalamic stroke
II. Subacute left PICA/SCA stroke.
III. 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
Plan
Unfortunately, the patient declines to use cholesterol-lowering agents which would further reduce the risk of stroke. Alternative such as Ezetimibe would be an option if the patient continues to decline to use atorvastatin
Continue aspirin and clopidogrel for an additional 21 days
Goal of normotension
Rehabilitation evaluations and treatment
Will follow as needed
Subjective/Objective
Subjective Data
Date of Service: December 01, 2024
Objective Data
Vital Signs
Temp Pulse Resp BP Pulse Ox
36.5 C 90 16 127/81 97
12/01/24 11:14 12/01/24 11:14 12/01/24 11:14 12/01/24 11:14 12/01/24 11:14
Lab Results
11/30/24 12:27
11/30/24 12:27
Sodium 139 mmol/L (135-145) 11/30/24 12:27
Potassium 4.5 mmol/L (3.5-5.1) 11/30/24 12:27
BUN 20 mg/dl (7-17) H 11/30/24 12:27
Glucose 88 mg/dl (70-99) 11/30/24 12:27
Calcium 9.9 mg/dl (8.4-10.2) 11/30/24 12:27
Phosphorus 4.5 mg/dl (2.5-4.5) 12/01/24 07:03
Vitamin B12 Cancelled 12/01/24 06:00
Patient Allergies
levofloxacin (From Levaquin) Allergy (Verified 11/30/24 11:55)
Anaphylaxis
morphine Allergy (Verified 11/30/24 11:55)
Vomiting
[id number] Reductase Inhibitor Adverse Reaction (Intermediate, Verified 11/30/24 11:55)
back pain
[2024-12-01 15:02] LABS: VerifyNow Aspirin 551 ARU; VerifyNow PRU 105 PRU (180-376)
[2024-12-01] MEDS: LOVENOX 40 MG SC (17:35)
[2024-12-01] MEDS: ZETIA 10 MG PO (21:09)
[2024-12-02] VITALS (7 sets, daily range): BP systolic 121–148; BP diastolic 56–75; PULSE 87; O2SAT 99
[2024-12-02] MEDS: VITAMIN B1 100 MG PO ×2 (08:43→20:35)
[2024-12-02] MEDS: PROTONIX 40 MG PO (08:44)
[2024-12-02] MEDS: DETROL LA 4 MG PO (08:44)
[2024-12-02] MEDS: NORVASC 2.5 MG PO (08:44)
[2024-12-02] MEDS: LOW STRENGTH ASPIRIN 81 MG PO (08:44)
[2024-12-02] MEDS: PLAVIX 75 MG PO (08:44)
[2024-12-02] MEDS: THERAGRAN 1 TABLET PO (08:44)
[2024-12-02] MEDS: SENOKOT PO (08:45)
[2024-12-02] MEDS: COLACE PO (08:45)
[2024-12-02 08:46] LABS: Hematocrit 40.1 % (37.0-47.0); Hemoglobin 13.7 g/dL (12.0-16.0); Mean Corp Hgb Conc. 34.2 g/dL (33.0-37.0); Mean Corpuscular Volume 87.9 fL (81.0-99.0); Platelet Count 201 10^3/uL (130-400); Red Cell Dist. Width 12.3 % (11.5-14.5)
[2024-12-02 09:25] LABS: Blood Urea Nitrogen 26 mg/dl (7-17); Calcium 9.5 mg/dl (8.4-10.2); Carbon Dioxide 26 mmol/L (22-30); Chloride 106 mmol/L (98-107); Estimated Creatinine Clearance 50 ml/min; Glucose 93 mg/dl (70-99); Potassium 4.6 mmol/L (3.5-5.1); Sodium 138 mmol/L (135-145); eGFR > 60.00
--- NOTE | 2024-12-02 10:25 | W.PN.HOSP.TC ---
Today's Communication/Plan
-
see A/P
Assessment / Plan
Assessment / Plan
HPI: 79 y/o female with past medical history of recent cerebellar strokes, coronary artery disease, and overactive bladder, presented from [facility] with confusion, slurred and nonsensical speech as per patient's daughter Josie.
Patient was recently diagnosed with cerebellar strokes, and was placed on Aspirin and Plavix for 21 days and discharged to [facility]. Patient was recently started on Meclizine for dizziness at [facility], and soon after her confusion and speech
issues started.
A/P:
# Confusion/Slurred Speech/Lethargy due to new acute L thalamus stroke
CT head this admission noted stable 2 small subacute left cerebellar infarcts.
MRI brain this admission showed new nonhemorrhagic acute/subacute left thalamic infarct.
recent CT head and neck 11/24 was unrevealing
d/w finding with Neuro Dr Joseph, he recc to cont DAPT ASA/plavix for additional 21 days with finding of this new stroke
Check echo with bubble (for recurrent strokes)
Card CS for desk monitor
Will need [facility] again
of note, UTI r/o with mixed miriam
# Recent acute cerebellar strokes
recent CT head and neck 11/24 was unrevealing
Pt had been on DAPT
Cont Zetia that was recently started (pt intolerant to statin)
# Essential Hypertension
Continue Amlodipine
# Hyperlipidemia
Cont Zetia was was recently started (pt intolerant to statin)
# Overactive bladder
Cont Tolterodine per family
# Cervical stenosis
# Left lobe thyroid lesion
# Skin/psoriasis
DVT Prophylaxis: Lovenox SQ
Code Status: Full Code
DW RN
DW daughters at bedside
total time 51 min
Anticipated Discharge: Within 24 hours
Subjective/Interval History
-
Date of Service: December 02, 2024
Objective Data
-
Labs:
Laboratory Results
12/02/24
08:11
WBC 8.8
Hgb 13.7
Hct 40.1
Plt Count 201
Sodium 138
Potassium 4.6
Chloride 106
Carbon Dioxide 26
BUN 26 H
Creatinine 0.8
Glucose 93
Calcium 9.5
Vital Signs:
Vital Signs
Temp Pulse Resp BP Pulse Ox
36.7 C 72 16 141/67 97
12/02/24 07:00 12/02/24 08:44 12/02/24 07:00 12/02/24 08:44 12/02/24 07:00
I&O
12/01/24 12/02/24 12/03/24
06:59 06:59 06:59
Intake Total 680 / 680
Balance 680 / 680
Review of Systems
-
History Source: Patient
All other systems: Reviewed and negative
Physical Exam
-
General: Well Developed, Well Nourished, No Apparent Distress, Comfortable and Conversant
HEENT: Normocephalic and Atraumatic
Respiratory: Clear to Auscultation and Non Labored Respirations; Negative Accessory Resp Muscle Use
Cardiac: Regular Rhythm and S1/S2
GI: Soft, Nontender, Nondistended and Normal Bowel Sounds
Musculoskeletal: No Clubbing, No Cyanosis and No Edema
Neuro: Awake and Alert; Negative Slurred Speech or Facial Droop
Psych: Calm and Intact Judgement/Insight
Data Reviewed
-
CT Scan: Report Reviewed by me
Labs: Labs Reviewed by me
Old Records: Reviewed
--- NOTE | 2024-12-02 10:49 | CON.CAR ---
Addendum entered and electronically signed by Padilla Galvin MD 12/02/24 14:12:
I saw and examined the patient.
The ELEVATOR OPERATOR SERVICE or PA's note was reviewed and I agree with the note.
Comment: General: Well developed, well nourished in NAD.
Neck: Supple, no JVD, HJR, carotids +2 B/L, no bruits bilaterally.
Heart: Non displaced PMI, RRR, no murmurs, No S3, S4, no rubs.
Lungs: Clear to auscultation bilaterally, no wheeze, rhonchi, rubs bilaterally,
normal expiratory phase.
Abdomen: Normal bowel sounds, soft, non-tender, non-distended.
Extremities: No clubbing, cyanosis or edema bilaterally.
Neuro: Grossly nonfocal, awake, alert and oriented x3.
Patsy has a history of CAD status post inferior wall WY with RCA stent 2011, hypertension, hyperlipidemia with statin intolerance, syncope, prolonged QTc, hypertension. She was admitted November 2024 with cerebellar stroke and was in rehab at [facility].
She was then taken to the ER with dizziness and difficulty with speech and found to have acute/subacute left thalamic stroke. Cardiology consulted for KASEY and possible monitor.
I explained the risks and benefits of KASEY in detail and she agrees to proceed. Will check echo with bubble study first. Will do 2-week monitor on discharge with plans for possible implantable monitor depending on neurologic input. Discussed with
patient and daughter in detail. She might be a candidate for Repatha or Praluent at some point.
Original Note:
Consultation
Consultation Request
Date/Time Consultation Requested: 12/02/2024
Date/Time Consultation Performed: 12/02/2024
Requesting Provider: Dr. Good
Performing Provider: Dr. Galvin
Reason for Consultation: CVA
Medical History
-
History of Present Illness:
Patient came to the ER from [facility] with concern for a new stroke and cardiology is consulted to help with KASEY. Patient was just admitted from 11/25/2024 until 11/27/2024 with cerebellar stroke and was undergoing rehab at [facility]. She
was given a dose of meclizine to help with some dizziness and started with dysarthria and confusion and so she was taken to the ER for evaluation. MRI of the brain is now suggesting an acute/subacute left thalamic stroke. Management of her initial
cerebellar stroke included the addition of aspirin and Plavix for 21 days followed by aspirin alone thereafter. Patient was not started on the statin by her choice due to previous intolerance and so instead was started on Zetia 10 mg daily.
Patient was undergoing therapy at [facility]. I do not see an echo from the last admission and the last echo I see is from 2022. Patient has a history of CAD with remote WY and RCA PCI in 2011. Patient last saw Dr. Rivers in the office on
06/26/2023 and was feeling well at that time and was given permission to resume driving as it was 6 months without symptoms since her episode of syncope in 2022. It sounds like since then the patient has had some changes in her cognition including
getting lost on a trip to the [facility] and being missing for over 2 hours and trouble managing her own finances leading to her moving in with her daughter and her children managing her finances.
PMH:
Recent admission with cerebellar stroke 11/25/2024 until 11/27/2024
CAD s/p IWMI and RCA PCI 2011
HTN
Hyperlipidemia with statin intolerance
h/o syncope 2022
h/o prolonged QTc 2022
Past Medical History
Past Medical History: Other (See HPI)
Past Surgical History: Other (spinal fusion, right total knee arthroplasty )
Social History
Tobacco: Non-Smoker
Alcohol: Occasional
Drug: None
Living: Alone
Family History
Family History: Other (Hyperlipidemia)
Allergies / Home Medications
Allergy/AdvReac Type Severity Reaction Status Date / Time
levofloxacin (From Levaquin) Allergy Anaphylaxis Verified 11/30/24 11:55
morphine Allergy Vomiting Verified 11/30/24 11:55
Eqoboup-WYL-XhA Reductase AdvReac Intermediate back pain Verified 11/30/24 11:55
Inhibitor
�Medication �Instructions �Recorded �Confirmed �Type
acetaminophen 325 mg tablet 650 mg (2 x 325 mg) PO Q4HPRN PRN 11/27/24 11/30/24 Rx
Mild Pain / Temp > 101 #0 tabs
amlodipine 2.5 mg tablet 2.5 mg PO DAILY #0 tabs 11/27/24 11/30/24 Rx
clopidogrel 75 mg tablet 75 mg PO DAILY #0 tabs 11/27/24 11/30/24 Rx
aspirin 81 mg tablet,delayed 810 mg PO DAILY Blood Clot 11/30/24 11/30/24 History
release Prevention/Tx
bisacodyl 10 mg rectal suppository 10 mg PA DAILYPRN PRN constipation 11/30/24 11/30/24 History
(Dulcolax (bisacodyl))
bisacodyl 5 mg tablet,delayed 10 mg PO DAILYPRN PRN constipation 11/30/24 11/30/24 History
release (Dulcolax (bisacodyl))
docusate sodium 100 mg capsule 100 mg PO BID Constipation 11/30/24 11/30/24 History
(Colace)
enoxaparin 40 mg/0.4 mL 40 mg SC QPM Blood Clot 11/30/24 11/30/24 History
subcutaneous syringe (Lovenox) Prevention/Tx
ezetimibe 10 mg tablet 10 mg PO HS High Cholesterol 11/30/24 11/30/24 History
meclizine 25 mg tablet 25 mg PO BID Dizziness 11/30/24 11/30/24 History
pantoprazole 40 mg tablet,delayed 40 mg PO DAILY Gastrointestinal 11/30/24 11/30/24 History
release (Protonix) Issue
sennosides 8.6 mg tablet (senna) 17.2 mg PO DAILY Constipation 11/30/24 11/30/24 History
tolterodine 4 mg capsule,extended 4 mg PO DAILY Urinary Issue 11/30/24 11/30/24 History
release 24 hr (Detrol LA)
Review of Systems
-
History Source: Patient
All other systems: Negative unless noted
Physical Exam
Vital Signs
Temp Pulse Resp BP Pulse Ox
98.0 F 72 16 141/67 97
12/02/24 07:00 12/02/24 08:44 12/02/24 07:00 12/02/24 08:44 12/02/24 07:00
GEN: NAD, AAO x3
HEENT: EOMI
LUNGS: RA, CTA B/L, no wheeze
CV: SR. Reg, S1/S2, no murmur, rubs or gallops
ABD: ND
EXT: No edema, clubbing or cyanosis
NEURO: Gross non-focal
SKIN: No rash, warm, dry, pink
Lab Results
12/02/24 08:11
12/02/24 08:11
Impression / Plan
-
PCP: Kristopher Guzmán
Hydro Plant Technician: Dr. Rivers
Impression:
Admitted with suspected CVA 11/30/2024
Recent admission with cerebellar stroke 11/25/2024 until 11/27/2024
New diagnosis of acute/subacute left thalamic stroke on MRI of brain 12/01/2024
New tiny nonhemorrhagic acute/subacute left cerebellar infarct by MRI 12/01/2024
Recent treatment for cerebellar vermis and left cerebellar hemisphere strokes on MRI 11/25/2024
CAD s/p IWMI and RCA PCI 2011
HTN
Hyperlipidemia with statin intolerance
h/o syncope 2022
Prolonged QTc 515 ms on ECG 11/26/2024
Stress echo 2012:negative for ischemia
Echo 08/31/2022: EF 50 to 55%, mild LVH, normal RV size and function, small to moderate loculated anterior pericardial effusion without evidence of hemodynamic compromise
Plan:
-Patient came to the ER from [facility] with concern for a new stroke and cardiology is consulted to help with KASEY. Patient was just admitted from 11/25/2024 until 11/27/2024 with cerebellar stroke and was undergoing rehab at [facility].
She was given a dose of meclizine to help with some dizziness and started with dysarthria and confusion and so she was taken to the ER for evaluation. MRI of the brain is now suggesting an acute/subacute left thalamic stroke. Management of her
initial cerebellar stroke included the addition of aspirin and Plavix for 21 days followed by aspirin alone thereafter. Patient was not started on the statin by her choice due to previous intolerance and so instead was started on Zetia 10 mg daily.
Patient was undergoing therapy at [facility]. I do not see an echo from the last admission and the last echo I see is from 2022. Patient has a history of CAD with remote WY and RCA PCI in 2011. Patient last saw Dr. Rivers in the office on
06/26/2023 and was feeling well at that time and was given permission to resume driving as it was 6 months without symptoms since her episode of syncope in 2022. It sounds like since then the patient has had some changes in her cognition including
getting lost on a trip to the [facility] and being missing for over 2 hours and trouble managing her own finances leading to her moving in with her daughter and her children managing her finances.
-ECG reviewed by me is SR without acute ST changes, the QTc is prolonged to 515 ms
-Patient is having recurrent stroke. No obvious atrial arrhythmia.
-Echo with bubble study was ordered by hospitalist attending and study has been completed, await report. At age 79 patient would be above the traditional cutoff for PFO closure.
-Will arrange for a 2-week monitor to look for atrial arrhythmia and pending result could consider Linq implant.
-Plan is for KASEY on 12/03/2024, ordered and coordinated by me.
-LDL was 193 on 11/25/2024 and patient declined statin therapy as it caused myalgias and back pain in the past. Patient is being treated with Zetia 10 mg daily. Would look into PCSK9 inhibitors as an outpatient.
-QTc 515 ms on ECG 11/26/2024. Recheck ECG, ordered by me. Patient has a history of prolonged QT and in the past Detrol LA was stopped, but is now listed as active on her outpatient med list and MAR. If QTc remains prolonged on ECG recommend
stopping Detrol LA.
--- NOTE | 2024-12-02 11:36 | CM ---
Addendum entered by Charis Zarate 12/02/24 14:51:
auth started with [facility] pending reference number # [id number]. fax [phone].
Addendum entered by Charis Zarate 12/02/24 13:49:
[facility] reached out to and requested start auth for patient to return to [facility] tomorrow.
Original Note:
Patient daughter seen at bedside on . Patient out at testing. Patient daughter states that patient had been at [facility] and transferred back to following a new stroke. CM called to [facility] to confirm patient ability to return pending medical
treatment plan. Per Brianne Liaison at [facility], plan is for patient to return pending auth and bed availability. CM will call back to confirm bed. CM will continue to follow for discharge planning needs.
Plan; [facility]; pending bed and authorization
[2024-12-02] MEDS: LOVENOX 40 MG SC (16:54)
[2024-12-02] MEDS: ZETIA 10 MG PO (20:35)
[2024-12-02] MEDS: COLACE 100 MG PO (20:35)
[2024-12-03 03:17] VITALS: BP 133/66
--- NOTE | 2024-12-03 03:44 | DOWNTIME ---
There was a [employer] Client Inspector Packer Downtime on 12/03/2024 from 0100 to 12/03/2024 at 0215. Downtime documentation of patient's care, including medication administrations, has been reconciled in the electronic record per guidelines. Refer to the
patient's paper chart under the miscellaneous tab to see printed paper medication records and downtime forms.
[2024-12-03 07:00] VITALS: BP 148/64
--- NOTE | 2024-12-03 07:50 | CM ---
CM received a call from [facility] and Jorje Haynes requested update from KASEY and echo with bubble that is scheduled for today be sent to her via fax at:[phone] prior to confirmation of authorization.
[2024-12-03] MEDS: VITAMIN B1 100 MG PO (09:03)
[2024-12-03] MEDS: PROTONIX 40 MG PO (09:03)
[2024-12-03] MEDS: SENOKOT 17.2 MG PO (09:04)
[2024-12-03] MEDS: LOW STRENGTH ASPIRIN 81 MG PO (09:04)
[2024-12-03] MEDS: PLAVIX 75 MG PO (09:04)
[2024-12-03] MEDS: THERAGRAN 1 TABLET PO (09:04)
[2024-12-03] MEDS: DETROL LA 4 MG PO (09:05)
[2024-12-03] MEDS: NORVASC 2.5 MG PO (09:05)
[2024-12-03] MEDS: COLACE 100 MG PO (09:05)
--- NOTE | 2024-12-03 11:37 | W.PN.CARDCBS ---
Addendum entered and electronically signed by Padilla Galvin MD 12/03/24 12:30:
I saw and examined the patient.
The BIOINFORMATICS ASSOCIATE or PA's note was reviewed and I agree with the note.
General: Well developed, well nourished in NAD.
Comment: KASEY negative for cardiac embolic event. Discussed with patient's daughter. Will arrange 2-week monitor. Will sign off, call with questions.
Original Note:
Today's Communication / Plan
-
KASEY today
14 day Rhythm star monitor prior to d/c
Impression / Plan
-
PCP: Kristopher Guzmán
Spool Maker: Dr. Rivers
Impression:
Admitted with suspected CVA 11/30/2024
Recent admission with cerebellar stroke 11/25/2024 until 11/27/2024
New diagnosis of acute/subacute left thalamic stroke on MRI of brain 12/01/2024
New tiny nonhemorrhagic acute/subacute left cerebellar infarct by MRI 12/01/2024
Recent treatment for cerebellar vermis and left cerebellar hemisphere strokes on MRI 11/25/2024
CAD s/p IWMI and RCA PCI 2011
HTN
Hyperlipidemia with statin intolerance
h/o syncope 2022
Prolonged QTc 515 ms on ECG 11/26/2024
Stress echo 2011:negative for ischemia
Echo 08/31/2022: EF 50 to 55%, mild LVH, normal RV size and function, small to moderate loculated anterior pericardial effusion without evidence of hemodynamic compromise
Plan:
-Telemetry reviewed by me and patient remains in SR. No evidence of atrial arrhythmia
-ECG from 12/02/2024 was reviewed by me on 12/03/2024 and showed improved QTc of 456 ms. Patient has a history of prolonged QT in 2022 and Detrol LA was stopped at that time, but is now listed as active on her outpatient med list and MAR. Now that
QTc has improved patient can continue with Detrol LA.
-Patient was admitted with recurrent CVA and bubble study was negative.
-Plan is for KASEY 12/03/2024
-Will arrange for outpatient 14-day rhythm star monitor, we will apply prior to discharge
-ECG reviewed by me is SR without acute ST changes, the QTc is prolonged to 515 ms
-LDL was 193 on 11/25/2024 and patient declined statin therapy as it caused myalgias and back pain in the past. Patient is being treated with Zetia 10 mg daily. Would look into PCSK9 inhibitors as an outpatient.
HPI: Patient came to the ER from [facility] with concern for a new stroke and cardiology is consulted to help with KASEY. Patient was just admitted from 11/25/2024 until 11/27/2024 with cerebellar stroke and was undergoing rehab at [facility].
She was given a dose of meclizine to help with some dizziness and started with dysarthria and confusion and so she was taken to the ER for evaluation. MRI of the brain is now suggesting an acute/subacute left thalamic stroke. Management of her
initial cerebellar stroke included the addition of aspirin and Plavix for 21 days followed by aspirin alone thereafter. Patient was not started on the statin by her choice due to previous intolerance and so instead was started on Zetia 10 mg daily.
Patient was undergoing therapy at [facility]. I do not see an echo from the last admission and the last echo I see is from 2022. Patient has a history of CAD with remote [place] and RCA PCI in 2011. Patient last saw Dr. Rivers in the office on
06/26/2023 and was feeling well at that time and was given permission to resume driving as it was 6 months without symptoms since her episode of syncope in 2022. It sounds like since then the patient has had some changes in her cognition including
getting lost on a trip to the [facility] and being missing for over 2 hours and trouble managing her own finances leading to her moving in with her daughter and her children managing her finances.
Progress Note - Spool Maker
Subjective
Date of Service: December 03, 2024
Patient is anxious for KASEY procedure today, no palpitations
Objective
Labs:
12/02/24 08:11
12/02/24 08:11
Labs
Hgb 13.7 g/dL (12.0-16.0) 12/02/24 08:11
Hct 40.1 % (37.0-47.0) 12/02/24 08:11
Plt Count 201 10^3/uL (130-400) 12/02/24 08:11
Sodium 138 mmol/L (135-145) 12/02/24 08:11
Potassium 4.6 mmol/L (3.5-5.1) 12/02/24 08:11
BUN 26 mg/dl (7-17) H 12/02/24 08:11
Creatinine 0.8 mg/dL (0.6-1.0) 12/02/24 08:11
Glucose 93 mg/dl (70-99) 12/02/24 08:11
Vital Signs and I&O:
Vital Signs
Temp Pulse Resp BP Pulse Ox
98.2 F 80 18 148/64 96
12/03/24 07:00 12/03/24 09:05 12/03/24 07:00 12/03/24 09:05 12/03/24 07:00
Vital Signs
Temp Pulse Resp BP Pulse Ox
98.2 F 80 18 148/64 96
12/03/24 07:00 12/03/24 09:05 12/03/24 07:00 12/03/24 09:05 12/03/24 07:00
Intake & Output
12/01/24 12/02/24 12/03/24 12/04/24
06:59 06:59 06:59 06:59
Intake Total 680 / 680 720 / 720
Output Total 150 / 150
Balance 680 / 680 720 / 570 -150 / -150
Physical Exam
Physical Exam
GEN: NAD, AAO x3
LUNGS: RA
CV: SR on tele
--- NOTE | 2024-12-03 12:12 | W.PN.HOSP.TC ---
Addendum entered and electronically signed by Mer Good MD 12/03/24 13:31:
Keep Norvasc 2.5 mg daily. BP WNL
Original Note:
Today's Communication/Plan
-
see A/P
Assessment / Plan
Assessment / Plan
HPI: 79 y/o female with past medical history of recent cerebellar strokes, coronary artery disease, and overactive bladder, presented from [facility] with confusion, slurred and nonsensical speech as per patient's daughter Josie.
Patient was recently diagnosed with cerebellar strokes, and was placed on Aspirin and Plavix for 21 days and discharged to [facility]. Patient was recently started on Meclizine for dizziness at [facility], and soon after her confusion and speech
issues started.
A/P:
# Confusion/Slurred Speech/Lethargy due to new acute L thalamus stroke
CT head this admission noted stable 2 small subacute left cerebellar infarcts from recent stroke.
MRI brain this admission showed new nonhemorrhagic acute/subacute left thalamic infarct.
Noted recent CT head and neck 11/24 was unrevealing
d/w finding with Neuro Dr Joseph, he recc to cont DAPT ASA/plavix for additional 21 days with finding of this new stroke
Echo with bubble unrevealing,
s/p KASEY which was also unrevealing
Card on board to assist with monitoring specialist
Plan for DC back to [facility]
of note, UTI r/o with mixed miriam
# Recent acute cerebellar strokes
recent CT head and neck 11/24 was unrevealing
Pt had been on DAPT
Cont Zetia that was recently started (pt intolerant to statin)
# Essential Hypertension
Continue Amlodipine, increase from 2.5 to 5 mg daily
# Hyperlipidemia
Cont Zetia which was recently started (pt intolerant to statin)
discussed Repatha which would be arranged by card outpt
# Overactive bladder
Cont Tolterodine per family
# Cervical stenosis
# Left lobe thyroid lesion
# Skin/psoriasis
DVT Prophylaxis: Lovenox SQ
Code Status: Full Code
DW RN and CM
DW daughter Todd on the phone
Anticipated Discharge: Within 24 hours
Subjective/Interval History
-
Date of Service: December 03, 2024
Objective Data
-
Vital Signs:
Vital Signs
Temp Pulse Resp BP Pulse Ox
36.8 C 80 18 148/64 96
12/03/24 07:00 12/03/24 09:05 12/03/24 07:00 12/03/24 09:05 12/03/24 07:00
I&O
12/02/24 12/03/24 12/04/24
06:59 06:59 06:59
Intake Total 680 / 680 720 / 720
Output Total 150 / 150
Balance 680 / 680 720 / 570 -150 / -150
Review of Systems
-
History Source: Patient
All other systems: Reviewed and negative
Physical Exam
-
General: Well Developed, Well Nourished, No Apparent Distress, Comfortable and Conversant
HEENT: Normocephalic and Atraumatic
Respiratory: Clear to Auscultation and Non Labored Respirations; Negative Accessory Resp Muscle Use
Cardiac: Regular Rhythm and S1/S2
GI: Soft, Nontender, Nondistended and Normal Bowel Sounds
Musculoskeletal: No Clubbing, No Cyanosis and No Edema
Neuro: Awake and Alert; Negative Slurred Speech or Facial Droop
Psych: Calm and Intact Judgement/Insight
Data Reviewed
-
CT Scan: Report Reviewed by me
Labs: Labs Reviewed by me
Old Records: Reviewed
--- NOTE | 2024-12-03 12:45 | CM ---
Chart reviewed. Plan is for patient to d/c to [facility].
Auth is currently pending through [facility], requesting KASEY and echo w/ bubble study. Studies completed today
CM spoke w/ [facility], will await documentation to complete auth determination
CM faxed echo report and KASEY documentation to [phone]
Plan: [facility] once auth is approved
[2024-12-03 13:00] VITALS: BP 128/65
--- NOTE | 2024-12-03 13:30 | W.DCSUMMARY ---
Discharge Summary
Discharge Data
Date of Admission: 12/01/24
Date of Discharge: 12/03/24
Total time spent discharging patient (in min): 40
-
Pending Results: No
Hospital Course
Principal Diagnosis:
Confusion/Slurred Speech/Lethargy due to new acute L thalamus stroke
Chronic Diagnoses:�
Recent acute cerebellar strokes in the beginning of Nov 2024
Essential Hypertension, continue Amlodipine at 2.5 daily
Hyperlipidemia, continue Zetia. To discuss Repatha with breakfast host outpatient.
Overactive bladder, continue Tolterodine
Cervical stenosis
Left lobe thyroid lesion
Skin/psoriasis
Consultations:�
Neurology
Cardiology
Procedures:�
KASEY 12/03, was unrevealing
Clinical course:�
This is a 79-year-old female with past medical history as stated above, who was at [facility] for recent cerebellar strokes, returned to the hospital due to confusion, slurred speech and lethargy.
Problem 1:
Confusion/Slurred Speech/Lethargy due to new acute L thalamus stroke noted on her MRI brain this admission.
Her recent CT head and neck from 11/24 was unrevealing.
Per neurologist, patient can continue with dual antiplatelet therapy aspirin/Plavix for an additional 21 days with finding of this new stroke. After the 21 days, to continue aspirin indefinitely.
The patient also had echo with bubble study this admission, which was unrevealing.
She also underwent KASEY which was unrevealing.
Loan Processing Supervisor was consulted to help patient set up reinforcing steel placer outpatient.
The patient can also follow-up with cardiology outpatient for Repatha tyson.
She was discharged back to [facility] for new acute stroke.
As for the rest of her medical problems, they were stable during her hospital stay.
Discharge Plan
-
Patient Disposition: Acute Rehab Facility
Discharge Diagnosis/Procedures: Confusion/Slurred Speech/Lethargy due to new acute L thalamus stroke;
Recent subacute left cerebellar strokes;
hyperlipidemia
Condition: Fair
Diet: As tolerated, Low Fat, Low Cholesterol and Low Sodium
Activity: As tolerated
Driving Restrictions: Not until seen by your Dr
Others Tests: A 14-day rhythm star monitor is being applied prior to discharge. Remove the monitor to shower daily and while showering place monitor on the charging station. When you have finished showering replace electrodes and monitor. At the
end of the monitoring period please place the monitor, battery and charging port in the provided postage paid bag and mail back via [employer].
Activity Restrictions/Additional Instructions:
Follow up with cardiology for eval for Repatha
Referrals:
Garret Rivers MD [Active, Cardiology] - 12/31/24 11:20 am
Referral Note: You have an appointment to see Dr. Rivers at the [place] office on 12/31/2024 at 11:20 AM. Please call [phone] if you need to reschedule.
Kristopher Guzmán, DO [Family Provider, Family Practice] - in less than 1 week
Additional Discharge Medication Instructions: Continue ASA and plavix for 20 days, then Aspirin indefinitely
Stop Meclizine
Prescriptions:
Continued
amlodipine 2.5 mg Tablet
2.5 mg PO DAILY Qty: 0 0RF
Rx Instructions:
hold for SBP < 100
acetaminophen 325 mg Tablet
650 mg PO Q4HPRN PRN (Reason: Mild Pain / Temp > 101) Qty: 0 0RF
sennosides [senna] 8.6 mg Tablet
17.2 mg PO DAILY
tolterodine [Detrol LA] 4 mg Capsule,Extended Release 24hr
4 mg PO DAILY
aspirin 81 mg Tablet,Delayed Release (Dr/Ec)
810 mg PO DAILY
bisacodyl [Dulcolax (bisacodyl)] 10 mg Suppository
10 mg OR DAILYPRN PRN (Reason: constipation)
pantoprazole [Protonix] 40 mg Tablet,Delayed Release (Dr/Ec)
40 mg PO DAILY
docusate sodium [Colace] 100 mg Capsule
100 mg PO BID
bisacodyl [Dulcolax (bisacodyl)] 5 mg Tablet,Delayed Release (Dr/Ec)
10 mg PO DAILYPRN PRN (Reason: constipation)
enoxaparin [Lovenox] 40 mg/0.4 mL Syringe
40 mg SC QPM
ezetimibe 10 mg tablet
10 mg PO HS
clopidogrel 75 mg Tablet
75 mg PO DAILY Qty: 20 0RF
Discontinued
meclizine 25 mg Tablet
25 mg PO BID
Discharge Orders:
Discharge Patient (As Directed); Ordered 12/03/24
Ordered By: Mer Good
Discharge Date and Time
Print Language: SOUTH SUDANESE
[2024-12-03 14:00] VITALS: BP 143/70
--- NOTE | 2024-12-03 14:19 | W.PN.UPDATE ---
Update Note
Progress Note Update
14-day rhythm star monitor applied by me. Directions reviewed with patient and her daughter at the bedside. There was some concern from the patient's daughter that it may be too difficult for patient to manage, but patient is going to [facility]
and her family will be visiting on a daily basis. Instructions updated on the discharge instruction sheet plus a booklet explaining the monitor along with diagrams was left with the patient's belongings for her to take to [facility].
[2024-12-03 15:00] VITALS: BP 143/70
--- NOTE | 2024-12-03 15:28 | CM ---
[facility] called with authorization [id number] reference number [id number] for today 12/03-12/09.
== END 2024-12-03 17:03 | DRG 65 ==
LOC: 4 WEST ACU 17:11
PROVIDERS: Internal Medicine Cardiovascular Disease; Psychiatry & Neurology Neurology; ADMITTING PHYSICIAN Hospitalist; ATTENDING PHYSICIAN Internal Medicine; CONSULT PHYSICIAN Internal Medicine Cardiovascular Disease; EMERGENCY PHYSICIAN Emergency Medicine; FAMILY PHYSICIAN Family Medicine
PROC: B24BZZ4 Ultrasonography of Heart with Aorta, Transesophageal (ICD-10-PCS; 2024-12-03)
DX: I63.542 Cerebral infarction due to unspecified occlusion or stenosis of left cerebellar artery (principal); G93.40 Encephalopathy, unspecified; I25.10 Atherosclerotic heart disease of native coronary artery without angina pectoris; I10 Essential (primary) hypertension; E78.00 Pure hypercholesterolemia, unspecified; N32.81 Overactive bladder; M48.02 Spinal stenosis, cervical region; L40.9 Psoriasis, unspecified; E07.9 Disorder of thyroid, unspecified; Z79.02 Long term (current) use of antithrombotics/antiplatelets; Z79.82 Long term (current) use of aspirin; Z79.899 Other long term (current) drug therapy
CPT/HCPCS: 70450; 70551; 80048; 80053; 81003; 81015; 82140; 82607; 82962; 83735; 84100; 84443; 85025; 85027; 85576; 87070; 87086; 93005; 93307; 93312; 93320; 93325; 97116; 97129; 97163; 97166; 97530; 97535; 99291

== ENCOUNTER 2025-01-13 08:09 | Outpatient (RCR) | payer MEDICARE, SELFPAY | END 2025-01-13 23:59 | disposition home or self-care (01) | LOC: ROT 08:09 | PROVIDERS: ATTENDING PHYSICIAN Physical Medicine & Rehabilitation; FAMILY PHYSICIAN Family Medicine | DX: I69.322 Dysarthria following cerebral infarction (principal); I69.318 Other symptoms and signs involving cognitive functions following cerebral infarction; Z73.6 Limitation of activities due to disability; R26.89 Other abnormalities of gait and mobility | CPT/HCPCS: 97110; 97112; 97116; 97163; 97167; 97530; 97535 ==

== ENCOUNTER 2025-01-15 11:49 | Day surgery (SDC) | payer MEDICARE, SELFPAY ==
--- NOTE | 2025-01-15 13:57 | ITS.CL.IMPLP ---
[employer] - Implant Loop
Implant Loop
Procedure Report:
Date of Procedure: January 15, 2025
Primary Care Provider: Dr Leonel Guzmán
Primary associate financial advisor: Dr Taiwo Rivers
Procedure: Insertable Loop Recorder Implantation
Indication:
Cryptogenic CVA
Procedure:
The patient was brought to the procedure area in a fasting state. The anterior chest was prepped and draped in standard sterile fashion. The fourth intercostal space along the left sternal border was identified and this area was anesthetized with 10
mL of 1% lidocaine. After gathering the skin in this area, a small punch incision was made at approx intercostal space 4-5 at left costo-sternal junction using the provided scalpel/punch tool. The loop recorder was loaded into the tunneling device.
A tunnel was created in the subcutaneous tissue at a 45� angle along the coronal plane away from the sternum and towards the left flank. The tunneling device was inverted and the plunger was depressed, inserting the loop recorder into the
subcutaneous space. The tunneling device was removed. Manual pressure provide hemostasis. Adequate signal was confirmed. The skin was closed with steri-strips. The estimated blood loss was < 1 cc. A clean dressing was placed over the wound.
There were no complications.
Implant:
[employer] Reveal LINQ
Conclusion: Uncomplicated implantation of loop recorder.
Recommendation: Routine ILR care.
Copy:
Primary Care Provider: Dr Leonel Guzmán
Primary associate financial advisor: Dr Taiwo Rivers
== END 2025-01-15 14:45 | disposition home or self-care (01) ==
LOC: CATH 11:49
PROVIDERS: ATTENDING PHYSICIAN Internal Medicine Cardiovascular Disease; FAMILY PHYSICIAN Family Medicine; OTHER PHYSICIAN Internal Medicine Cardiovascular Disease
DX: Z09 Encounter for follow-up examination after completed treatment for conditions other than malignant neoplasm (principal); Z86.73 Personal history of transient ischemic attack (TIA), and cerebral infarction without residual deficits; E78.2 Mixed hyperlipidemia; I95.1 Orthostatic hypotension; I10 Essential (primary) hypertension; Z79.02 Long term (current) use of antithrombotics/antiplatelets; Z79.899 Other long term (current) drug therapy
CPT/HCPCS: 33285; C1764

== ENCOUNTER 2025-02-03 09:12 | Outpatient (RCR) | payer MEDICARE, SELFPAY | END 2025-02-03 12:54 | disposition home or self-care (01) | LOC: ROT 09:12 | PROVIDERS: ATTENDING PHYSICIAN Physical Medicine & Rehabilitation; FAMILY PHYSICIAN Family Medicine | DX: I69.322 Dysarthria following cerebral infarction (principal); I69.318 Other symptoms and signs involving cognitive functions following cerebral infarction; Z73.6 Limitation of activities due to disability; R26.89 Other abnormalities of gait and mobility | CPT/HCPCS: 97110; 97112; 97530; 97535 ==